=== PATIENT | male | born 1975 | race Caucasian/White ===

== ENCOUNTER 2017-01-08 19:31 | Emergency (ER) | payer SELFPAY ==
[~2017-01-08] VITALS: Ht 172.7 cm; Wt 93.3 kg
[2017-01-08] MEDS: MORPHINE SULFATE 4 MG/ML, 1ML IVPush PRN ×2 (20:53→22:15)
[2017-01-08] MEDS ORDERED: MORPHINE SULFATE 4 MG/ML, 1ML ONE ×2 (20:54→22:07)
[2017-01-08] MEDS ORDERED: FAMOTIDINE 20 MG/2 ML ONE (20:54)
[2017-01-08] MEDS ORDERED: ONDANSETRON 2MG/ML, 2ML ONE (20:54)
[2017-01-08] MEDS ORDERED: FAMOTIDINE 20 MG/2 ML IVP ONE (21:00)
[2017-01-08] MEDS ORDERED: SODIUM CHLORIDE FLUSH 10ML SYR IVF ONE (21:00)
[2017-01-08] MEDS ORDERED: ONDANSETRON 2MG/ML, 2ML IVPush ONE (21:00)
[2017-01-08] MEDS ORDERED: SODIUM CHLORIDE 0.9% 1,000ML IVBOLUS ONE (21:00)
[2017-01-08] MEDS ORDERED: OMNIPAQUE 350 MG/ML, 100ML BOTTLE ONE (21:00)
[2017-01-08 21:34] LABS: BLOOD UREA NITROGEN 16 mg/dL (7-18)
[2017-01-08 21:38] LABS: ASPARTATE AMINO TRANSFERASE 20 U/L (15-37)
[2017-01-08 22:23] VITALS: BP 164/105
[2017-01-08 22:48] LABS: DAU SCREEN DISCLAIMER
[2017-01-08] MEDS ORDERED: MAALOX/HYOSCYAMINE/LIDOCAINE 45 ML BOTTLE PO ONE (23:30)
[2017-01-08] MEDS ORDERED: MAALOX/HYOSCYAMINE/LIDOCAINE 45 ML BOTTLE ONE (23:34)
== END 2017-01-08 23:52 | disposition home or self-care (01) ==
LOC: ED 20:38
DX: K29.20 Alcoholic gastritis without bleeding (principal); K21.0 Gastro-esophageal reflux disease with esophagitis
CPT/HCPCS: 36415; 74177; 80053; 80307; 83690; 85025; 86677; 93005; 96361; 96374; 96375; 96376; 99285; J2405; J7030; Q9967; S0028

== ENCOUNTER 2017-03-02 17:34 | Emergency (ER) | payer SELFPAY ==
[~2017-03-02] VITALS: Ht 167.6 cm; Wt 113.0 kg
[2017-03-02] MEDS ORDERED: MAALOX/HYOSCYAMINE/LIDOCAINE 45 ML BOTTLE PO ONE (18:00)
[2017-03-02] MEDS ORDERED: LORazepam 1MG TABLET PO ONE (18:00)
[2017-03-02] MEDS ORDERED: MAALOX/HYOSCYAMINE/LIDOCAINE 45 ML BOTTLE ONE (18:14)
[2017-03-02] MEDS ORDERED: LORazepam 1MG TABLET ONE (18:14)
[2017-03-02 18:30] LABS: ASPARTATE AMINO TRANSFERASE 27 U/L (15-37); BLOOD UREA NITROGEN 17 mg/dL (7-18)
[2017-03-02 18:33] LABS: ACETAMINOPHEN < 2 mcg/mL (10-30)
[2017-03-02] MEDS ORDERED: ZIPRASIDONE 20 MG INJ IM ONE ×2 (19:29→19:30)
[2017-03-02 23:59] LABS: DAU SCREEN DISCLAIMER
[2017-03-03] MEDS ORDERED: CHLORDIAZEPOXIDE 25 MG CAPSULE PO ONE ×2 (01:00→02:30)
[2017-03-03] MEDS: CHLORDIAZEPOXIDE 25 MG CAPSULE PO PRN ×2 (01:41→02:22)
[2017-03-03] MEDS ORDERED: ONDANSETRON ODT 4 MG ONE (02:08)
[2017-03-03] MEDS ORDERED: FAMOTIDINE 20 MG TABLET ONE (02:08)
[2017-03-03 02:12] VITALS: BP 156/107
[2017-03-03] MEDS ORDERED: ONDANSETRON ODT 8 MG PO ONE (02:30)
[2017-03-03] MEDS ORDERED: ONDANSETRON ODT 4 MG PO ONE (02:30)
[2017-03-03] MEDS ORDERED: FAMOTIDINE 20 MG TABLET PO ONE (02:30)
== END 2017-03-03 02:58 | disposition home or self-care (01) ==
LOC: ED 21:51
DX: F10.220 Alcohol dependence with intoxication, uncomplicated (principal); R45.851 Suicidal ideations; K29.20 Alcoholic gastritis without bleeding; G31.2 Degeneration of nervous system due to alcohol
CPT/HCPCS: 36415; 80053; 80307; 80329; 85025; 93005; 96372; 99285; J3486; Q0162; G0480

== ENCOUNTER 2017-06-02 15:13 | Inpatient (IN) | payer SELFPAY ==
[~2017-06-02] VITALS: Ht 172.7 cm; Wt 93.6 kg
[2017-06-02] MEDS ORDERED: PLEASE ENTER HEIGHT AND WEIGHT MC SCH (15:30)
[2017-06-02] MEDS ORDERED: ONDANSETRON 2MG/ML, 2ML IVPush ONE ×2 (15:30→20:00)
[2017-06-02] MEDS ORDERED: SODIUM CHLORIDE FLUSH 10ML SYR IVF ONE (15:30)
[2017-06-02] MEDS ORDERED: LORazepam 2 MG/ML, 1ML IVPush ONE (15:30)
[2017-06-02] MEDS ORDERED: SODIUM CHLORIDE 0.9% 1,000ML IVBOLUS ONE (15:30)
[2017-06-02] MEDS ORDERED: FAMOTIDINE 20 MG/2 ML IVP ONE (15:30)
[2017-06-02 15:54] LABS: HEMATOCRIT 50.6 % (39.2-51.8); HEMOGLOBIN 17.3 g/dL (13.7-18.0); WHITE BLOOD COUNT 12.7 x10^3/uL (3.4-10)
[2017-06-02 16:08] LABS: ASPARTATE AMINO TRANSFERASE 23 U/L (15-37); BLOOD UREA NITROGEN 11 mg/dL (7-18)
[2017-06-02] MEDS ORDERED: PANTOPRAZOLE 80 MG in SODIUM CHLORIDE 0.9% 50 ML IVPB ONE (17:56)
[2017-06-02] MEDS ORDERED: ONDANSETRON 2MG/ML, 2ML ONE ×3 (17:57→19:52)
[2017-06-02] MEDS ORDERED: LORazepam 2 MG/ML, 1ML ONE (17:58)
[2017-06-02] MEDS ORDERED: FAMOTIDINE 20 MG/2 ML ONE (17:58)
[2017-06-02] MEDS ORDERED: PANTOPRAZOLE 40 MG IV IVP ONE (18:00)
[2017-06-02] MEDS ORDERED: PANTOPRAZOLE 40 MG IV ONE (18:14)
[2017-06-02] MEDS ORDERED: PANTOPRAZOLE 80 MG in SODIUM CHLORIDE 0.9% 100 ML IV SCH (18:35)
[2017-06-02] MEDS ORDERED: POTASSIUM CHLORIDE 40 MEQ in SODIUM CHLORIDE 0.9% 1,000 ML IV ONE (18:42)
[2017-06-02] MEDS ORDERED: NS + 40MEQ KCL 1,000 ML IV ONE (19:13)
[2017-06-02] MEDS ORDERED: SODIUM CHLORIDE FLUSH 10ML SYR IVF PRN (20:00)
[2017-06-02] MEDS ORDERED: ONDANSETRON 2MG/ML, 2ML IV PRN (20:00)
[2017-06-02] MEDS ORDERED: hydrALAzine 20 MG/ML, 1ML IVPush PRN (20:00)
[2017-06-02] MEDS ORDERED: ONDANSETRON 2MG/ML, 2ML IVPush PRN (20:00)
[2017-06-02] MEDS ORDERED: THIAMINE 100 MG in SODIUM CHLORIDE 0.9% 50 ML IVPB ONE (20:00)
[2017-06-02] MEDS: PANTOPRAZOLE 80 MG in SODIUM CHLORIDE 0.9% 50 ML IVPB SCH ×15 (20:00→23:30)
[2017-06-02] MEDS ORDERED: LORazepam 2 MG/ML, 1ML IM PRN (20:30)
[2017-06-02 22:18] VITALS: BP 96/67
[2017-06-02 23:00] VITALS: BP 96/67
[2017-06-02] MEDS ORDERED: LORazepam 2 MG/ML, 1ML IV PRN (23:00)
[2017-06-02] MEDS ORDERED: PROMETHAZINE 25 MG/ML, 1ML IM PRN (23:00)
[2017-06-03] MEDS: SODIUM CHLORIDE 0.9% 1,000 ML IV SCH ×3 (00:01→22:11)
[2017-06-03 02:55] VITALS: BP 105/74
[2017-06-03] MEDS: HYDROmorphone 2 MG/ML, 1ML IVPush PRN ×4 (04:39→22:07)
[2017-06-03 05:46] LABS: HEMOGLOBIN 9.6 g/dL (13.7-18.0)
[2017-06-03 05:51] LABS: ASPARTATE AMINO TRANSFERASE 27 U/L (15-37); BLOOD UREA NITROGEN 33 mg/dL (7-18)
[2017-06-03] MEDS ORDERED: PANTOPRAZOLE 40 MG IV IVPush SCH (07:30)
[2017-06-03 07:59] VITALS: BP 125/80
[2017-06-03] MEDS ORDERED: FENTANYL PF 100 MCG/2ML ONE (08:55)
[2017-06-03] MEDS ORDERED: MIDAZOLAM 1 MG/ML, 2ML ONE (08:55)
[2017-06-03 09:06] LABS: PATH.CAST-FLAG NOT PRESENT; SPERM-FLAG NOT PRESENT; SRC-FLAG NOT PRESENT; XTAL-FLAG NOT PRESENT; YLC-FLAG NOT PRESENT
[2017-06-03] MEDS ORDERED: PROPOFOL 10 MG/ML, 20ML ONE (09:06)
[2017-06-03] MEDS ORDERED: DEXAMETHASONE 4 MG/ML, 1ML ONE (09:06)
[2017-06-03] MEDS ORDERED: ROCURONIUM 10 MG/ML ONE (09:06)
[2017-06-03] MEDS ORDERED: ONDANSETRON 2MG/ML, 2ML ONE (09:06)
[2017-06-03] MEDS ORDERED: SUCCINYLCHOLINE 20 MG/ML, 10ML ONE (09:06)
[2017-06-03] MEDS ORDERED: HYDROcodone/APAP 7.5-325MG/15ML UDC PO PRN (10:00)
[2017-06-03] MEDS ORDERED: OXYcodone 5 MG/5 ML ORAL.SOL UDC PO PRN (10:00)
[2017-06-03] MEDS ORDERED: ONDANSETRON 2MG/ML, 2ML IVPush PRN (10:00)
[2017-06-03] MEDS ORDERED: FENTANYL PF 100 MCG/2ML IV PRN (10:00)
[2017-06-03] MEDS ORDERED: HYDROmorphone 1 MG/ML, 1ML IV PRN (10:00)
[2017-06-03] MEDS: PANTOPRAZOLE 80 MG in SODIUM CHLORIDE 0.9% 100 ML IV SCH ×2 (13:18→22:31)
[2017-06-03] MEDS: IRON SUCROSE COMPLEX 100MG/5ML IV SCH (13:19)
[2017-06-03] MEDS: NICOTINE 21 MG/24 HR PATCH.TD24 TD SCH (13:19)
[2017-06-03 14:30] VITALS: BP 113/72
[2017-06-03 20:35] VITALS: BP 123/71
[2017-06-04 01:34] VITALS: BP 134/75
[2017-06-04] MEDS: HYDROmorphone 2 MG/ML, 1ML IVPush PRN ×7 (01:39→21:12)
[2017-06-04 05:42] LABS: HEMOGLOBIN 7.6 g/dL (13.7-18.0)
[2017-06-04 05:44] LABS: HEMATOCRIT 22.4 % (39.2-51.8)
[2017-06-04 07:24] VITALS: BP 115/71
[2017-06-04] MEDS: IRON SUCROSE COMPLEX 100MG/5ML IV SCH (09:12)
[2017-06-04] MEDS: NICOTINE 21 MG/24 HR PATCH.TD24 TD SCH (09:19)
[2017-06-04] MEDS: PANTOPRAZOLE 80 MG in SODIUM CHLORIDE 0.9% 100 ML IV SCH ×2 (09:34→18:00)
[2017-06-04 11:38] LABS: HEMOGLOBIN 7.6 g/dL (13.7-18.0); WHITE BLOOD COUNT 10.5 x10^3/uL (3.4-10)
[2017-06-04 11:42] LABS: HEMATOCRIT 22.3 % (39.2-51.8)
[2017-06-04 13:25] VITALS: BP 124/82
[2017-06-04] MEDS: SODIUM CHLORIDE 0.9% 1,000 ML IV SCH (13:30)
[2017-06-04 20:00] VITALS: BP 138/82
[2017-06-05] MEDS: HYDROmorphone 2 MG/ML, 1ML IVPush PRN ×5 (00:36→19:53)
[2017-06-05 01:25] VITALS: BP 147/89
[2017-06-05] MEDS: SODIUM CHLORIDE 0.9% 1,000 ML IV SCH (03:20)
[2017-06-05 04:58] LABS: HEMATOCRIT 23.7 % (39.2-51.8); HEMOGLOBIN 8.2 g/dL (13.7-18.0)
[2017-06-05] MEDS: PANTOPRAZOLE 80 MG in SODIUM CHLORIDE 0.9% 100 ML IV SCH (06:00)
[2017-06-05 08:17] VITALS: BP 117/73
[2017-06-05] MEDS: IRON SUCROSE COMPLEX 100MG/5ML IV SCH (09:00)
[2017-06-05] MEDS: SUCRALFATE 1 GM/10 ML UDC PO SCH ×3 (11:00→21:32)
[2017-06-05] MEDS: NICOTINE 21 MG/24 HR PATCH.TD24 TD SCH (11:00)
[2017-06-05 13:33] VITALS: BP 104/65
[2017-06-05] MEDS ORDERED: PANT40TA3 PO (18:57)
[2017-06-05] MEDS ORDERED: SUCR1ORA5 PO (18:57)
[2017-06-05] MEDS ORDERED: IRON1TAB37 PO (18:57)
[2017-06-05] MEDS ORDERED: MAGNESIUM SULFATE PMX 4GM/100M 100 ML IV ONE (19:00)
[2017-06-05] MEDS: PANTOPRAZOLE 40 MG IV IVPush SCH (19:53)
[2017-06-05] MEDS: POTASSIUM CHLORIDE 10% 40 MEQ/30 ML UDC PO SCH (19:54)
[2017-06-05 20:00] VITALS: BP 121/64
[2017-06-05] MEDS ORDERED: DIPHENHYDRAMINE 50 MG CAPSULE PO SCH (21:00)
[2017-06-06] MEDS: POTASSIUM CHLORIDE 10% 40 MEQ/30 ML UDC PO SCH (00:15)
[2017-06-06] MEDS: HYDROmorphone 2 MG/ML, 1ML IVPush PRN ×2 (00:16→09:05)
[2017-06-06 03:08] VITALS: BP 117/74
[2017-06-06] MEDS: SUCRALFATE 1 GM/10 ML UDC PO SCH ×2 (06:44→11:53)
[2017-06-06 07:00] VITALS: BP 124/82
[2017-06-06] MEDS ORDERED: POTASSIUM CHLORIDE 10% 40 MEQ/30 ML UDC PO ONE (08:00)
[2017-06-06] MEDS: PANTOPRAZOLE 40 MG IV IVPush SCH (08:36)
[2017-06-06] MEDS: IRON SUCROSE COMPLEX 100MG/5ML IV SCH (08:37)
[2017-06-06] MEDS: NICOTINE 21 MG/24 HR PATCH.TD24 TD SCH (11:54)
[2017-06-06] MEDS ORDERED: POTA20TA14 PO (12:54)
== END 2017-06-06 14:50 | disposition home or self-care (01) | DRG 896 ==
LOC: ED 19:49 → EDIP 19:50 → ED 19:53 → 3NE 22:02 → DCLOUNGE 06-06 13:45
PROVIDERS: ADMIT Internal Medicine; ATTEND Internal Medicine
PROC: 0DJ08ZZ Inspection of Upper Intestinal Tract, Via Natural or Artificial Opening Endoscopic (ICD-10-PCS; principal; 2017-06-03 08:30)
DX: F10.239 Alcohol dependence with withdrawal, unspecified (principal); K22.11 Ulcer of esophagus with bleeding; K29.21 Alcoholic gastritis with bleeding; D62 Acute posthemorrhagic anemia; F10.288 Alcohol dependence with other alcohol-induced disorder; K26.9 Duodenal ulcer, unspecified as acute or chronic, without hemorrhage or perforation; K22.2 Esophageal obstruction; I10 Essential (primary) hypertension; E87.6 Hypokalemia; F17.200 Nicotine dependence, unspecified, uncomplicated; F41.1 Generalized anxiety disorder; G47.00 Insomnia, unspecified; K21.9 Gastro-esophageal reflux disease without esophagitis
CPT/HCPCS: 36415; 74022; 76700; 80053; 81001; 83690; 83735; 84132; 85014; 85018; 85025; 85610; 85730; 86850; 86900; 87086; 93005; 96361; 96374; 96375; J1100; J1170; J1756; J2250; J2405; J2550; J2704; J3010; J3411; J3480; C9113; J0330; J2060; J3475; J7030; S0028

== ENCOUNTER 2017-08-30 22:09 | Emergency (ER) | payer OTHER ==
[~2017-08-30] VITALS: Ht 172.7 cm; Wt 92.0 kg
[~2017-08-30 22:09] MED LIST: IRON1TAB37 PO; PANT40TA3 PO; POTA20TA14 PO; SUCR1ORA5 PO
[2017-08-30] MEDS ORDERED: MAALOX/HYOSCYAMINE/LIDOCAINE 45 ML BTL ONE (23:20)
[2017-08-30 23:22] VITALS: BP 140/90
[2017-08-30] MEDS ORDERED: MAALOX/HYOSCYAMINE/LIDOCAINE 45 ML BTL PO ONE (23:30)
[2017-08-30 23:32] LABS: BASOPHILS # (AUTO) 0.07 x10^3/uL (0-0.1); BASOPHILS % (AUTO) 1 % (0-1); EOSINOPHILS # (AUTO) 0.17 x10^3/uL (0-0.4); EOSINOPHILS % (AUTO) 1 % (1-7); LYMPHOCYTES # (AUTO) 3.93 x10^3/uL (1-3.4); LYMPHOCYTES % (AUTO) 33 % (22-44); MD NO; MEAN CORPUSCULAR HEMOGLOBIN 29.9 pg (27.5-34.5); MEAN CORPUSCULAR HGB CONC 32.8 g/dL (33.2-36.2); MEAN CORPUSCULAR VOLUME 90.9 fL (81-97); MEAN PLATELET VOLUME 7.2 fL (7.4-10.4); MONOCYTES # (AUTO) 1.06 x10^3/uL (0.2-0.8); MONOCYTES % (AUTO) 9 % (2-9); NEUTROPHILS % (AUTO) 56 % (42-75); PLATELET COUNT 466 x10^3/uL (130-400); RED BLOOD COUNT 5.23 x10^6/uL (4.38-5.82)
[2017-08-30 23:42] LABS: ANION GAP 12 mmol/L (5-15); CALCIUM 8.7 mg/dL (8.5-10.1); CHLORIDE 92 mmol/L (98-107); CREATININE 1.22 mg/dL (0.7-1.3)
[2017-08-30 23:46] LABS: INTERNATIONAL NORMALIZED RATIO 0.98 (0.93-1.1); PROTHROMBIN TIME 10.1 Seconds (9.6-11.5)
[2017-08-31] MEDS ORDERED: THIAMINE 100MG TABLET PO ONE
[2017-08-31] MEDS ORDERED: THIAMINE 100MG TABLET ONE (00:05)
[2017-08-31] MEDS ORDERED: POTASSIUM CHLORIDE 20 MEQ TAB.ER.PRT ONE (00:06)
[2017-08-31] MEDS: POTASSIUM CHLORIDE 20 MEQ TAB.ER.PRT PO ONE ×2 (00:08→00:19)
== END 2017-08-31 00:41 | disposition left against medical advice (07) ==
LOC: ED 23:18
DX: K29.00 Acute gastritis without bleeding (principal); F10.10 Alcohol abuse, uncomplicated; K21.9 Gastro-esophageal reflux disease without esophagitis; F17.200 Nicotine dependence, unspecified, uncomplicated
CPT/HCPCS: 36415; 80048; 80307; 82040; 85025; 85610; 85730; 99284; G0479

== ENCOUNTER 2017-09-30 11:37 | Emergency (ER) | payer SELFPAY ==
[~2017-09-30] VITALS: Ht 172.7 cm; Wt 91.1 kg
[2017-09-30] MEDS ORDERED: SODIUM CHLORIDE 0.9% 1,000ML IVBOLUS ONE (12:30)
[2017-09-30] MEDS ORDERED: FAMOTIDINE 20 MG/2 ML IVP ONE (12:30)
[2017-09-30] MEDS ORDERED: MAALOX/HYOSCYAMINE/LIDOCAINE 45 ML BTL PO ONE (12:30)
[2017-09-30 12:33] LABS: BASOPHILS # (AUTO) 0.07 x10^3/uL (0-0.1); BASOPHILS % (AUTO) 1 % (0-1); EOSINOPHILS # (AUTO) 0.05 x10^3/uL (0-0.4); EOSINOPHILS % (AUTO) 0 % (1-7); LYMPHOCYTES # (AUTO) 3.24 x10^3/uL (1-3.4); LYMPHOCYTES % (AUTO) 26 % (22-44); MD NO; MEAN CORPUSCULAR HEMOGLOBIN 29.3 pg (27.5-34.5); MEAN CORPUSCULAR HGB CONC 32.9 g/dL (33.2-36.2); MEAN CORPUSCULAR VOLUME 88.8 fL (81-97); MEAN PLATELET VOLUME 7.6 fL (7.4-10.4); MONOCYTES # (AUTO) 0.47 x10^3/uL (0.2-0.8); MONOCYTES % (AUTO) 4 % (2-9); NEUTROPHILS # (AUTO) 8.64 x10^3/uL (1.8-6.8); NEUTROPHILS % (AUTO) 69 % (42-75); PLATELET COUNT 488 x10^3/uL (130-400); RED BLOOD COUNT 5.13 x10^6/uL (4.38-5.82)
[2017-09-30] MEDS ORDERED: FAMOTIDINE 20 MG/2 ML ONE (12:34)
[2017-09-30] MEDS ORDERED: MAALOX/HYOSCYAMINE/LIDOCAINE 45 ML BTL ONE (12:34)
[2017-09-30 12:36] LABS: INTERNATIONAL NORMALIZED RATIO 0.95 (0.93-1.1); PROTHROMBIN TIME 9.9 Seconds (9.6-11.5)
[2017-09-30 12:40] LABS: ALANINE AMINOTRANSFERASE 32 U/L (12-78); ALBUMIN 3.9 g/dL (3.4-5.0); ANION GAP 15 mmol/L (5-15); CALCIUM 8.1 mg/dL (8.5-10.1); CHLORIDE 98 mmol/L (98-107); CREATININE 1.06 mg/dL (0.7-1.3)
[2017-09-30 12:42] LABS: ALKALINE PHOSPHATASE 84 U/L (45-117); BILIRUBIN,TOTAL 0.2 mg/dL (0.2-1.0); TOTAL PROTEIN 7.7 g/dL (6.4-8.2)
[2017-09-30] MEDS ORDERED: POTASSIUM CHLORIDE 20 MEQ TAB.ER.PRT PO ONE (13:00)
[2017-09-30] MEDS ORDERED: POTASSIUM CHLORIDE 20 MEQ TAB.ER.PRT ONE (14:04)
[2017-09-30] MEDS ORDERED: MORPHINE SULFATE 4 MG/ML, 1ML ONE (14:24)
[2017-09-30] MEDS ORDERED: morphine SULFATE 10 MG/ML, 1ML IVPush ONE (14:30)
[2017-09-30 15:03] VITALS: BP 170/109
== END 2017-09-30 15:09 | disposition home or self-care (01) ==
LOC: ED 12:44
DX: K29.20 Alcoholic gastritis without bleeding (principal); F10.129 Alcohol abuse with intoxication, unspecified; K21.9 Gastro-esophageal reflux disease without esophagitis; E86.0 Dehydration; Z87.11 Personal history of peptic ulcer disease
CPT/HCPCS: 36415; 80053; 83690; 85025; 85610; 96361; 96374; 96375; 99285; J2270; J7030; S0028

== ENCOUNTER 2018-04-23 18:54 | Emergency (ER) | payer SELFPAY ==
[~2018-04-23] VITALS: Ht 167.6 cm; Wt 89.2 kg
[2018-04-23 19:45] LABS: BASOPHILS # (AUTO) 0.12 x10^3/uL (0-0.1); BASOPHILS % (AUTO) 1 % (0-1); EOSINOPHILS # (AUTO) 0.08 x10^3/uL (0-0.4); EOSINOPHILS % (AUTO) 1 % (1-7); LYMPHOCYTES # (AUTO) 3.28 x10^3/uL (1-3.4); LYMPHOCYTES % (AUTO) 26 % (22-44); MD NO; MEAN CORPUSCULAR HEMOGLOBIN 30.1 pg (27.5-34.5); MEAN CORPUSCULAR HGB CONC 33.4 g/dL (33.2-36.2); MEAN CORPUSCULAR VOLUME 90.2 fL (81-97); MEAN PLATELET VOLUME 7.3 fL (7.4-10.4); MONOCYTES # (AUTO) 0.65 x10^3/uL (0.2-0.8); MONOCYTES % (AUTO) 5 % (2-9); NEUTROPHILS # (AUTO) 8.55 x10^3/uL (1.8-6.8); NEUTROPHILS % (AUTO) 67 % (42-75); PLATELET COUNT 570 x10^3/uL (130-400); RED CELL DISTRIBUTION WIDTH 18.9 % (9.4-14.8)
[2018-04-23 19:53] LABS: ALANINE AMINOTRANSFERASE 40 U/L (12-78); ALBUMIN 3.7 g/dL (3.4-5.0); ANION GAP 13 mmol/L (5-15); CALCIUM 8.1 mg/dL (8.5-10.1); CHLORIDE 103 mmol/L (98-107); SALICYLATE LEVEL 4.1 mg/dL (2.8-20.0)
[2018-04-23 20:02] LABS: ACETAMINOPHEN < 2 mcg/mL (10-30); ALKALINE PHOSPHATASE 103 U/L (45-117); BILIRUBIN,TOTAL 0.3 mg/dL (0.2-1.0); TOTAL PROTEIN 7.7 g/dL (6.4-8.2)
[2018-04-23] MEDS ORDERED: POTASSIUM CHLORIDE 20 MEQ TAB.ER.PRT ONE (20:11)
[2018-04-23 20:23] LABS: AMPHETAMINE SCREEN, URINE Negative (Negative); BARBITURATE SCREEN, URINE Negative (Negative); BENZODIAZEPINE SCREEN, URINE Negative (Negative); CANNABINOID SCREEN, URINE Negative (Negative); COCAINE SCREEN, URINE Negative (Negative); METHADONE SCREEN, URINE Negative (Negative); OPIATE SCREEN, URINE Negative (Negative)
[2018-04-23] MEDS ORDERED: POTASSIUM CHLORIDE 20 MEQ TAB.ER.PRT PO ONE (20:30)
[2018-04-23 21:00] VITALS: BP 121/74
== END 2018-04-23 21:57 | disposition home or self-care (01) ==
LOC: ED 21:10
DX: F10.129 Alcohol abuse with intoxication, unspecified (principal); E87.6 Hypokalemia; K21.9 Gastro-esophageal reflux disease without esophagitis; F17.200 Nicotine dependence, unspecified, uncomplicated; Z79.899 Other long term (current) drug therapy
CPT/HCPCS: 36415; 80053; 80307; 80329; 85025; 99284; G0480

== ENCOUNTER 2018-04-26 19:43 | Inpatient (IN) | payer OTHER ==
[~2018-04-26] VITALS: Ht 172.7 cm; Wt 90.4 kg
[2018-04-26] MEDS ORDERED: ONDANSETRON ODT 4 MG ONE (19:47)
[2018-04-26] MEDS ORDERED: ONDANSETRON ODT 4 MG PO ONE (20:00)
[2018-04-26] MEDS ORDERED: PROMETHAZINE 25 MG/ML, 1ML ONE (20:06)
[2018-04-26] MEDS: LORazepam 1MG TABLET PO ONE ×2 (20:30→23:20)
[2018-04-26] MEDS ORDERED: PROMETHAZINE 25 MG/ML, 1ML IM ONE (20:30)
[2018-04-26 20:40] LABS: MEAN CORPUSCULAR HEMOGLOBIN 30.1 pg (27.5-34.5); MEAN CORPUSCULAR HGB CONC 33.1 g/dL (33.2-36.2); MEAN CORPUSCULAR VOLUME 91.2 fL (81-97); MEAN PLATELET VOLUME 7.8 fL (7.4-10.4); PLATELET COUNT 372 x10^3/uL (130-400); RED BLOOD COUNT 5.66 x10^6/uL (4.38-5.82); RED CELL DISTRIBUTION WIDTH 18.1 % (9.4-14.8)
[2018-04-26 20:45] LABS: INTERNATIONAL NORMALIZED RATIO 1.04 (0.93-1.1); PROTHROMBIN TIME 10.7 Seconds (9.6-11.5)
[2018-04-26 20:49] LABS: ALANINE AMINOTRANSFERASE 43 U/L (12-78); ALBUMIN 4.1 g/dL (3.4-5.0); ANION GAP 10 mmol/L (5-15); CHLORIDE 98 mmol/L (98-107); CREATININE 1.43 mg/dL (0.7-1.3)
[2018-04-26 20:52] LABS: ALKALINE PHOSPHATASE 165 U/L (45-117); BILIRUBIN,TOTAL 1.4 mg/dL (0.2-1.0); TOTAL PROTEIN 8.4 g/dL (6.4-8.2)
[2018-04-26 20:59] LABS: MD YES
[2018-04-26 21:01] LABS: BAND#(MANUAL) 0.19 x10^3/uL; BANDS%(MANUAL) 1 % (0-7); LYMPH#(MANUAL) 1.48 x10^3/uL (1-3.4); LYMPHS% (MANUAL) 8 % (22-44); MONOS#(MANUAL) 0.19 x10^3/uL (0.3-2.7); MONOS% (MANUAL) 1 % (2-9); SEG#(MANUAL) 16.65 x10^3/uL (1.8-6.8); SEGS% (MANUAL) 90 % (42-75)
[2018-04-26 21:02] LABS: <PLATELET ESTIMATE> ADEQUATE; <PLT MORPHOLOGY> NORMAL PLT MORPH; ANISOCYTOSIS 1+
[2018-04-26] MEDS ORDERED: SODIUM CHLORIDE 0.9% 1,000 ML IV ONE (21:18)
[2018-04-26] MEDS ORDERED: SODIUM CHLORIDE FLUSH 10ML SYR IVF ONE (21:30)
[2018-04-26] MEDS ORDERED: hydrALAzine 20 MG/ML, 1ML IV ONE (21:30)
[2018-04-26] MEDS ORDERED: SODIUM CHLORIDE 0.9% 1,000ML IVBOLUS ONE (21:30)
[2018-04-26] MEDS ORDERED: LORazepam 2 MG/ML, 1ML IVPush ONE (21:30)
[2018-04-26] MEDS ORDERED: hydrALAzine 20 MG/ML, 1ML ONE (21:38)
[2018-04-26] MEDS ORDERED: LORazepam 2 MG/ML, 1ML ONE (21:39)
[2018-04-26] MEDS ORDERED: PROMETHAZINE 25 MG/ML, 1ML IM PRN (22:00)
[2018-04-26] MEDS ORDERED: BISACODYL 10 MG SUPP PR PRN (22:00)
[2018-04-26] MEDS: NS + 20MEQ KCL 1,000 ML IV SCH (22:00)
[2018-04-26 22:05] LABS: TROPONIN I < 0.015 ng/mL (0.000-0.045)
[2018-04-26] MEDS ORDERED: POTASSIUM CHLORIDE 20 MEQ, MAGNESIUM SULFATE 1 GM, THIAMINE 200 MG, FOLIC ACID 1 MG, MV... IV SCH (22:30)
[2018-04-26] MEDS: NICOTINE 21 MG/24 HR PATCH.TD24 TD SCH (23:20)
[2018-04-26] MEDS: PANTOPRAZOLE 40 MG IV IVPush SCH (23:31)
[2018-04-27 01:40] VITALS: BP 135/83
[2018-04-27] MEDS ORDERED: LORazepam 2 MG/ML, 1ML IV PRN ×4 (02:00)
[2018-04-27 02:26] VITALS: BP 132/82
[2018-04-27] MEDS: LORazepam 2 MG/ML, 1ML IV PRN (03:00)
[2018-04-27 05:37] LABS: CHLORIDE 106 mmol/L (98-107)
[2018-04-27 05:46] LABS: ALANINE AMINOTRANSFERASE 31 U/L (12-78); ALBUMIN 3.1 g/dL (3.4-5.0); ALKALINE PHOSPHATASE 119 U/L (45-117); ANION GAP 6 mmol/L (5-15); BILIRUBIN,TOTAL 0.8 mg/dL (0.2-1.0); CALCIUM 7.7 mg/dL (8.5-10.1); CREATININE 1.03 mg/dL (0.7-1.3); TOTAL PROTEIN 6.7 g/dL (6.4-8.2)
[2018-04-27] MEDS: NS + 20MEQ KCL 1,000 ML IV SCH ×3 (05:53→21:55)
[2018-04-27 06:05] LABS: BASOPHILS # (AUTO) 0.05 x10^3/uL (0-0.1); BASOPHILS % (AUTO) 0 % (0-1); EOSINOPHILS # (AUTO) 0.03 x10^3/uL (0-0.4); EOSINOPHILS % (AUTO) 0 % (1-7); LYMPHOCYTES # (AUTO) 2.11 x10^3/uL (1-3.4); LYMPHOCYTES % (AUTO) 13 % (22-44); MD NO; MEAN CORPUSCULAR HEMOGLOBIN 30.3 pg (27.5-34.5); MEAN CORPUSCULAR HGB CONC 33.6 g/dL (33.2-36.2); MEAN CORPUSCULAR VOLUME 90.4 fL (81-97); MEAN PLATELET VOLUME 8.1 fL (7.4-10.4); MONOCYTES # (AUTO) 0.87 x10^3/uL (0.2-0.8); MONOCYTES % (AUTO) 5 % (2-9); NEUTROPHILS # (AUTO) 12.87 x10^3/uL (1.8-6.8); NEUTROPHILS % (AUTO) 81 % (42-75); PLATELET COUNT 325 x10^3/uL (130-400); RED BLOOD COUNT 4.53 x10^6/uL (4.38-5.82); RED CELL DISTRIBUTION WIDTH 18.6 % (9.4-14.8)
[2018-04-27 08:53] VITALS: BP 143/85
[2018-04-27] MEDS ORDERED: POTASSIUM CHLORIDE 20 MEQ TAB.ER.PRT PO SCH (09:00)
[2018-04-27] MEDS: SUCRALFATE 1 GM TABLET PO SCH ×5 (10:13→21:50)
[2018-04-27] MEDS: ONDANSETRON 2MG/ML, 2ML IVPush PRN ×2 (10:17→17:22)
[2018-04-27] MEDS: PANTOPRAZOLE 40 MG IV IVPush SCH (10:17)
[2018-04-27] MEDS ORDERED: FAMOTIDINE 20 MG TABLET PO SCH (11:00)
[2018-04-27] MEDS: MAALOX/HYOSCYAMINE/LIDOCAINE 45 ML BTL PO PRN ×2 (11:39→17:13)
[2018-04-27] MEDS: THIAMINE 100MG TABLET PO SCH (12:08)
[2018-04-27] MEDS: FOLIC ACID 1 MG TABLET PO SCH (12:08)
[2018-04-27] MEDS: MULTIVITAMIN 1 TABLET PO SCH (12:08)
[2018-04-27 14:31] VITALS: BP 136/89
[2018-04-27] MEDS: POTASSIUM CHLORIDE 20 MEQ TAB.ER.PRT PO SCH ×2 (17:14→17:37)
[2018-04-27 19:30] VITALS: BP 153/98
[2018-04-27] MEDS: NICOTINE 21 MG/24 HR PATCH.TD24 TD SCH (21:55)
[2018-04-27] MEDS: FAMOTIDINE 20 MG/2 ML IVPush SCH (21:55)
[2018-04-27] MEDS ORDERED: MORPHINE SULFATE 4 MG/ML, 1ML IVPush ONE (22:30)
[2018-04-28] MEDS: NS + 20MEQ KCL 1,000 ML IV SCH ×3 (00:17→20:52)
[2018-04-28 00:22] VITALS: BP 154/79
[2018-04-28 05:27] LABS: MEAN CORPUSCULAR HEMOGLOBIN 30.2 pg (27.5-34.5); MEAN CORPUSCULAR VOLUME 91.3 fL (81-97); PLATELET COUNT 263 x10^3/uL (130-400); RED BLOOD COUNT 4.27 x10^6/uL (4.38-5.82); RED CELL DISTRIBUTION WIDTH 18.1 % (9.4-14.8)
[2018-04-28 05:32] LABS: ANION GAP 6 mmol/L (5-15); CALCIUM 7.8 mg/dL (8.5-10.1); CHLORIDE 113 mmol/L (98-107)
[2018-04-28 06:17] LABS: BASOPHILS # (AUTO) 0.01 x10^3/uL (0-0.1); BASOPHILS % (AUTO) 0 % (0-1); EOSINOPHILS # (AUTO) 0.16 x10^3/uL (0-0.4); EOSINOPHILS % (AUTO) 1 % (1-7); LYMPHOCYTES # (AUTO) 1.81 x10^3/uL (1-3.4); LYMPHOCYTES % (AUTO) 16 % (22-44); MD SCAN; MONOCYTES # (AUTO) 0.61 x10^3/uL (0.2-0.8); MONOCYTES % (AUTO) 5 % (2-9); NEUTROPHILS # (AUTO) 8.77 x10^3/uL (1.8-6.8); NEUTROPHILS % (AUTO) 77 % (42-75)
[2018-04-28] MEDS: SUCRALFATE 1 GM TABLET PO SCH ×4 (07:00→20:51)
[2018-04-28 07:41] VITALS: BP 149/93
[2018-04-28] MEDS: POTASSIUM CHLORIDE 20 MEQ TAB.ER.PRT PO SCH ×2 (08:00→17:00)
[2018-04-28] MEDS: FOLIC ACID 1 MG TABLET PO SCH (09:00)
[2018-04-28] MEDS: FAMOTIDINE 20 MG/2 ML IVPush SCH ×2 (09:00→20:51)
[2018-04-28] MEDS: THIAMINE 100MG TABLET PO SCH (09:00)
[2018-04-28] MEDS: MULTIVITAMIN 1 TABLET PO SCH (09:00)
[2018-04-28] MEDS ORDERED: LORazepam 2 MG/ML, 1ML IVPush ONE (11:30)
[2018-04-28 12:01] LABS: MICROSCOPIC NOT IND
[2018-04-28 12:06] LABS: CULTURE INDICATED? NO
[2018-04-28] MEDS ORDERED: GADOBUTROL 10 MMOL/10 ML PFS ONE (13:42)
[2018-04-28 13:58] VITALS: BP 157/103
[2018-04-28] MEDS: PANTOPRAZOLE 40 MG IV IVPush SCH (15:35)
[2018-04-28 18:46] VITALS: BP 150/90
[2018-04-28] MEDS: MAALOX/HYOSCYAMINE/LIDOCAINE 45 ML BTL PO PRN (20:52)
[2018-04-28] MEDS: NICOTINE 21 MG/24 HR PATCH.TD24 TD SCH (21:29)
[2018-04-28] MEDS: LORazepam 2 MG/ML, 1ML IV PRN (22:12)
[2018-04-29 01:08] VITALS: BP 155/93
[2018-04-29] MEDS: PANTOPRAZOLE 40 MG IV IVPush SCH ×2 (03:16→15:03)
[2018-04-29] MEDS: MAALOX/HYOSCYAMINE/LIDOCAINE 45 ML BTL PO PRN (04:10)
[2018-04-29] MEDS: NS + 20MEQ KCL 1,000 ML IV SCH ×2 (05:20→15:35)
[2018-04-29 05:41] LABS: ANION GAP 7 mmol/L (5-15); CALCIUM 7.9 mg/dL (8.5-10.1); CHLORIDE 107 mmol/L (98-107)
[2018-04-29 05:42] LABS: CREATININE 0.77 mg/dL (0.7-1.3)
[2018-04-29 05:50] LABS: BASOPHILS # (AUTO) 0.03 x10^3/uL (0-0.1); BASOPHILS % (AUTO) 0 % (0-1); EOSINOPHILS # (AUTO) 0.43 x10^3/uL (0-0.4); EOSINOPHILS % (AUTO) 5 % (1-7); LYMPHOCYTES # (AUTO) 2.16 x10^3/uL (1-3.4); LYMPHOCYTES % (AUTO) 23 % (22-44); MD NO; MEAN CORPUSCULAR HEMOGLOBIN 30.6 pg (27.5-34.5); MEAN CORPUSCULAR HGB CONC 33.7 g/dL (33.2-36.2); MEAN CORPUSCULAR VOLUME 90.9 fL (81-97); MEAN PLATELET VOLUME 8.1 fL (7.4-10.4); MONOCYTES # (AUTO) 0.71 x10^3/uL (0.2-0.8); MONOCYTES % (AUTO) 8 % (2-9); NEUTROPHILS # (AUTO) 6.14 x10^3/uL (1.8-6.8); NEUTROPHILS % (AUTO) 65 % (42-75); PLATELET COUNT 265 x10^3/uL (130-400); RED CELL DISTRIBUTION WIDTH 17.8 % (9.4-14.8)
[2018-04-29 09:28] VITALS: BP 153/106
[2018-04-29] MEDS: FAMOTIDINE 20 MG/2 ML IVPush SCH (09:37)
[2018-04-29] MEDS: POTASSIUM CHLORIDE 20 MEQ TAB.ER.PRT PO SCH ×2 (10:47→15:48)
[2018-04-29] MEDS: SUCRALFATE 1 GM TABLET PO SCH ×4 (10:47→20:32)
[2018-04-29] MEDS: MULTIVITAMIN 1 TABLET PO SCH (10:48)
[2018-04-29] MEDS: THIAMINE 100MG TABLET PO SCH (10:48)
[2018-04-29] MEDS: FOLIC ACID 1 MG TABLET PO SCH (10:48)
[2018-04-29 15:08] VITALS: BP 146/97
[2018-04-29 19:00] VITALS: BP 162/123
[2018-04-29] MEDS: NICOTINE 21 MG/24 HR PATCH.TD24 TD SCH (21:07)
[2018-04-30] MEDS: NS + 20MEQ KCL 1,000 ML IV SCH ×2 (00:09→09:19)
[2018-04-30] MEDS: PANTOPRAZOLE 40 MG IV IVPush SCH (02:16)
[2018-04-30 02:21] VITALS: BP 169/111
[2018-04-30 06:39] LABS: BASOPHILS # (AUTO) 0.02 x10^3/uL (0-0.1); BASOPHILS % (AUTO) 0 % (0-1); EOSINOPHILS # (AUTO) 0.35 x10^3/uL (0-0.4); EOSINOPHILS % (AUTO) 5 % (1-7); LYMPHOCYTES # (AUTO) 1.91 x10^3/uL (1-3.4); LYMPHOCYTES % (AUTO) 26 % (22-44); MD NO; MEAN CORPUSCULAR HEMOGLOBIN 30.7 pg (27.5-34.5); MEAN CORPUSCULAR HGB CONC 33.4 g/dL (33.2-36.2); MEAN CORPUSCULAR VOLUME 91.9 fL (81-97); MEAN PLATELET VOLUME 7.6 fL (7.4-10.4); MONOCYTES # (AUTO) 0.84 x10^3/uL (0.2-0.8); MONOCYTES % (AUTO) 12 % (2-9); NEUTROPHILS # (AUTO) 4.15 x10^3/uL (1.8-6.8); NEUTROPHILS % (AUTO) 57 % (42-75); PLATELET COUNT 320 x10^3/uL (130-400); RED BLOOD COUNT 4.65 x10^6/uL (4.38-5.82)
[2018-04-30 06:48] LABS: ALANINE AMINOTRANSFERASE 33 U/L (12-78); ANION GAP 8 mmol/L (5-15); CALCIUM 8.1 mg/dL (8.5-10.1); CHLORIDE 107 mmol/L (98-107); CREATININE 0.78 mg/dL (0.7-1.3)
[2018-04-30 06:50] LABS: ALKALINE PHOSPHATASE 94 U/L (45-117); BILIRUBIN,TOTAL 0.4 mg/dL (0.2-1.0); TOTAL PROTEIN 6.9 g/dL (6.4-8.2)
[2018-04-30] MEDS: SUCRALFATE 1 GM TABLET PO SCH (07:00)
[2018-04-30 07:38] VITALS: BP 159/104
[2018-04-30] MEDS: POTASSIUM CHLORIDE 20 MEQ TAB.ER.PRT PO SCH (08:00)
[2018-04-30] MEDS: THIAMINE 100MG TABLET PO SCH (09:00)
[2018-04-30] MEDS: MULTIVITAMIN 1 TABLET PO SCH (09:00)
[2018-04-30] MEDS: FOLIC ACID 1 MG TABLET PO SCH (09:00)
[2018-04-30] MEDS ORDERED: CAPTOPRIL 12.5 MG TABLET PO PRN (10:30)
[2018-04-30 14:00] VITALS: BP 173/130
[2018-04-30] MEDS ORDERED: LABETALOL 5MG/ML, 20ML IVPush PRN (14:30)
[2018-04-30 14:58] VITALS: BP 144/103
[2018-04-30] MEDS ORDERED: SUCRALFATE 1 GM/10 ML UDC PO SCH (16:00)
[2018-05-01] MEDS ORDERED: PANTOPROZOLE 40MG TABLET PO SCH (07:30)
== END 2018-04-30 15:14 | disposition left against medical advice (07) | DRG 381 ==
LOC: ED 20:43 → EDIP 21:19 → 4EST 22:46 → 4WST 23:04 → 4EST 23:10
PROVIDERS: ADMIT Hospitalist; ATTEND Family Medicine
DX: K22.11 Ulcer of esophagus with bleeding (principal); F10.231 Alcohol dependence with withdrawal delirium; R45.851 Suicidal ideations; E66.9 Obesity, unspecified; E87.6 Hypokalemia; Z53.29 Procedure and treatment not carried out because of patient's decision for other reasons; E80.6 Other disorders of bilirubin metabolism; D72.829 Elevated white blood cell count, unspecified; F17.210 Nicotine dependence, cigarettes, uncomplicated; I16.0 Hypertensive urgency; N28.9 Disorder of kidney and ureter, unspecified; J02.9 Acute pharyngitis, unspecified; K21.0 Gastro-esophageal reflux disease with esophagitis; Z71.6 Tobacco abuse counseling; Z87.11 Personal history of peptic ulcer disease; Z87.19 Personal history of other diseases of the digestive system; Z91.19 Patient's noncompliance with other medical treatment and regimen; Z68.30 Body mass index [BMI] 30.0-30.9, adult
CPT/HCPCS: 36415; 74022; 87806; 99285; S0028; 70543; 80048; 80053; 81003; 83690; 83735; 83880; 84484; 85025; 85610; 86705; 86706; 86708; 86709; 86803; 87081; 87340; 87880; 93005; 96361; 96372; 96374; 96375; A9585; J2405; J2550; J3411; J3475; J3480; Q0162; C9113; G0475; J0360; J2060; J7030

== ENCOUNTER 2018-06-21 19:48 | Inpatient (IN) | payer MEDICAID ==
[~2018-06-21] VITALS: Ht 172.7 cm; Wt 87.3 kg
[2018-06-21] MEDS ORDERED: PANTOPRAZOLE 40 MG IV IVPush ONE (20:00)
[2018-06-21] MEDS ORDERED: SODIUM CHLORIDE FLUSH 10ML SYR IVF ONE (20:00)
[2018-06-21] MEDS ORDERED: SODIUM CHLORIDE 0.9% 1,000ML IVBOLUS ONE (20:00)
[2018-06-21] MEDS ORDERED: DIAZEPAM 5 MG TABLET PO ONE (20:00)
[2018-06-21] MEDS ORDERED: PROMETHAZINE 25 MG/ML, 1ML IM ONE (20:00)
[2018-06-21] MEDS ORDERED: THIAMINE 100MG TABLET PO ONE (20:00)
[2018-06-21] MEDS ORDERED: PANTOPRAZOLE 40 MG IV ONE (20:03)
[2018-06-21] MEDS ORDERED: PROMETHAZINE 25 MG/ML, 1ML ONE (20:03)
[2018-06-21] MEDS ORDERED: LORazepam 2 MG/ML, 1ML ONE ×3 (20:04→22:28)
[2018-06-21] MEDS: LORazepam 2 MG/ML, 1ML IVPush PRN ×3 (20:10→22:31)
[2018-06-21 20:17] LABS: BASOPHILS # (AUTO) 0.07 x10^3/uL (0-0.1); BASOPHILS % (AUTO) 0 % (0-1); EOSINOPHILS % (AUTO) 0 % (1-7); LYMPHOCYTES # (AUTO) 2.25 x10^3/uL (1-3.4); LYMPHOCYTES % (AUTO) 13 % (22-44); MD NO; MEAN CORPUSCULAR HEMOGLOBIN 30.9 pg (27.5-34.5); MEAN CORPUSCULAR HGB CONC 33.5 g/dL (33.2-36.2); MEAN CORPUSCULAR VOLUME 92.3 fL (81-97); MONOCYTES # (AUTO) 0.51 x10^3/uL (0.2-0.8); MONOCYTES % (AUTO) 3 % (2-9); NEUTROPHILS # (AUTO) 15.19 x10^3/uL (1.8-6.8); NEUTROPHILS % (AUTO) 84 % (42-75); PLATELET COUNT 585 x10^3/uL (130-400); RED CELL DISTRIBUTION WIDTH 18.8 % (9.4-14.8)
[2018-06-21 20:29] LABS: ALANINE AMINOTRANSFERASE 29 U/L (12-78); ALBUMIN 4.3 g/dL (3.4-5.0); ANION GAP 15 mmol/L (5-15); CHLORIDE 102 mmol/L (98-107); CREATININE 1.22 mg/dL (0.7-1.3)
[2018-06-21 20:31] LABS: ALKALINE PHOSPHATASE 95 U/L (45-117); BILIRUBIN,TOTAL 0.2 mg/dL (0.2-1.0); TOTAL PROTEIN 8.8 g/dL (6.4-8.2)
[2018-06-21] MEDS ORDERED: THIAMINE 100MG TABLET ONE (20:44)
[2018-06-21] MEDS ORDERED: DIAZEPAM 5 MG TABLET ONE (20:44)
[2018-06-21] MEDS ORDERED: OMNIPAQUE 350 MG/ML, 100ML BOTTLE ONE (21:17)
[2018-06-21] MEDS ORDERED: METOCLOPRAMIDE 5 MG/ML, 2ML IVPush ONE (21:30)
[2018-06-21] MEDS ORDERED: METOCLOPRAMIDE 5 MG/ML, 2ML ONE (21:48)
[2018-06-21 23:00] VITALS: BP 165/100
[2018-06-22] MEDS ORDERED: NICOTINE 21 MG/24 HR PATCH.TD24 TD ONE
[2018-06-22] MEDS ORDERED: ALUMINUM/MAG/SIMETHICONE 30 ML UDC PO PRN
[2018-06-22] MEDS: SODIUM CHLORIDE 0.9% 1,000 ML IV SCH ×3 (00:16→16:40)
[2018-06-22] MEDS: ONDANSETRON 2MG/ML, 2ML IV PRN ×3 (00:16→16:40)
[2018-06-22] MEDS: PHENOL THROAT SPRAY BOTTLE MM PRN ×2 (00:42→07:16)
[2018-06-22 01:09] VITALS: BP 138/79
[2018-06-22] MEDS: LORazepam 2 MG/ML, 1ML IVPush PRN ×3 (01:18→16:40)
[2018-06-22] MEDS: PROMETHAZINE 25 MG/ML, 1ML IM PRN ×3 (01:32→22:08)
[2018-06-22] MEDS: LABETALOL 5MG/ML, 20ML IV PRN (03:18)
[2018-06-22 05:27] LABS: MEAN CORPUSCULAR HGB CONC 33.5 g/dL (33.2-36.2); MEAN CORPUSCULAR VOLUME 92.6 fL (81-97); MEAN PLATELET VOLUME 8.6 fL (7.4-10.4); PLATELET COUNT 488 x10^3/uL (130-400); RED BLOOD COUNT 4.77 x10^6/uL (4.38-5.82); RED CELL DISTRIBUTION WIDTH 18.4 % (9.4-14.8)
[2018-06-22 05:57] LABS: BASOPHILS # (AUTO) 0.05 x10^3/uL (0-0.1); BASOPHILS % (AUTO) 0 % (0-1); EOSINOPHILS % (AUTO) 0 % (1-7); LYMPHOCYTES # (AUTO) 1.28 x10^3/uL (1-3.4); LYMPHOCYTES % (AUTO) 7 % (22-44); MD SCAN; MONOCYTES # (AUTO) 1.12 x10^3/uL (0.2-0.8); MONOCYTES % (AUTO) 6 % (2-9); NEUTROPHILS # (AUTO) 16.54 x10^3/uL (1.8-6.8); NEUTROPHILS % (AUTO) 87 % (42-75)
[2018-06-22] MEDS: PANTOPRAZOLE 40 MG IV IVPush SCH ×2 (07:16→21:48)
[2018-06-22 07:31] VITALS: BP 153/83
[2018-06-22] MEDS: MULTIVITAMINS/MINERALS TABLET PO SCH (07:45)
[2018-06-22] MEDS: CIPROFLOXACIN/PMX 400MG/200ML 200 ML IV SCH ×2 (10:51→21:51)
[2018-06-22] MEDS: METRONIDAZOLE PMX 500MG/100ML 100 ML IV SCH ×3 (12:04→23:26)
[2018-06-22] MEDS: MORPHINE SULFATE 4 MG/ML, 1ML IVPush PRN ×3 (12:04→21:48)
[2018-06-22 14:20] VITALS: BP 156/85
[2018-06-22 18:50] VITALS: BP 149/88
[2018-06-23] VITALS (7 sets, daily range): BP systolic 154–184; BP diastolic 92–108
[2018-06-23] MEDS: METRONIDAZOLE PMX 500MG/100ML 100 ML IV SCH ×3 (04:51→20:40)
[2018-06-23] MEDS: SODIUM CHLORIDE 0.9% 1,000 ML IV SCH ×3 (04:51→19:28)
[2018-06-23] MEDS: PANTOPRAZOLE 40 MG IV IVPush SCH ×2 (08:00→20:40)
[2018-06-23 08:28] LABS: ANION GAP 7 mmol/L (5-15); CALCIUM 7.9 mg/dL (8.5-10.1); CHLORIDE 115 mmol/L (98-107); CREATININE 0.84 mg/dL (0.7-1.3)
[2018-06-23] MEDS: MULTIVITAMINS/MINERALS TABLET PO SCH (09:00)
[2018-06-23] MEDS ORDERED: PROPOFOL 10 MG/ML, 20ML ONE (11:40)
[2018-06-23] MEDS ORDERED: EPINEPHRINE SYRINGE 0.1 MG/ML, 10ML ONE (12:03)
[2018-06-23] MEDS ORDERED: ONDANSETRON 2MG/ML, 2ML ONE (12:16)
[2018-06-23] MEDS: ONDANSETRON 2MG/ML, 2ML IV PRN ×3 (12:18→20:40)
[2018-06-23] MEDS: CIPROFLOXACIN/PMX 400MG/200ML 200 ML IV SCH ×2 (12:40→23:56)
[2018-06-23] MEDS: MORPHINE SULFATE 4 MG/ML, 1ML IVPush PRN ×2 (14:48→19:28)
[2018-06-23] MEDS: LORazepam 2 MG/ML, 1ML IVPush PRN ×2 (16:13→20:40)
[2018-06-23] MEDS: PROMETHAZINE 25 MG/ML, 1ML IM PRN (19:36)
[2018-06-23] MEDS: LABETALOL 5MG/ML, 20ML IV PRN (21:07)
[2018-06-24] MEDS ORDERED: METOCLOPRAMIDE 5 MG/ML, 2ML IVPush ONE (01:00)
[2018-06-24] MEDS: MORPHINE SULFATE 4 MG/ML, 1ML IVPush PRN ×4 (01:32→23:29)
[2018-06-24 01:36] VITALS: BP 162/92
[2018-06-24] MEDS: SODIUM CHLORIDE 0.9% 1,000 ML IV SCH (02:28)
[2018-06-24] MEDS: METRONIDAZOLE PMX 500MG/100ML 100 ML IV SCH ×3 (02:28→19:49)
[2018-06-24] MEDS: ONDANSETRON 2MG/ML, 2ML IV PRN ×3 (04:59→19:48)
[2018-06-24 05:07] LABS: ANION GAP 9 mmol/L (5-15); CHLORIDE 103 mmol/L (98-107)
[2018-06-24 05:08] LABS: CREATININE 0.69 mg/dL (0.7-1.3)
[2018-06-24 05:11] LABS: BASOPHILS # (AUTO) 0.05 x10^3/uL (0-0.1); BASOPHILS % (AUTO) 0 % (0-1); EOSINOPHILS # (AUTO) 0.07 x10^3/uL (0-0.4); EOSINOPHILS % (AUTO) 1 % (1-7); LYMPHOCYTES # (AUTO) 2.18 x10^3/uL (1-3.4); LYMPHOCYTES % (AUTO) 16 % (22-44); MD NO; MEAN CORPUSCULAR HEMOGLOBIN 30.9 pg (27.5-34.5); MEAN CORPUSCULAR HGB CONC 33.2 g/dL (33.2-36.2); MEAN CORPUSCULAR VOLUME 93.1 fL (81-97); MEAN PLATELET VOLUME 8.5 fL (7.4-10.4); MONOCYTES # (AUTO) 0.72 x10^3/uL (0.2-0.8); MONOCYTES % (AUTO) 5 % (2-9); NEUTROPHILS % (AUTO) 77 % (42-75); PLATELET COUNT 335 x10^3/uL (130-400); RED BLOOD COUNT 3.83 x10^6/uL (4.38-5.82); RED CELL DISTRIBUTION WIDTH 16.7 % (9.4-14.8)
[2018-06-24] MEDS: LORazepam 2 MG/ML, 1ML IVPush PRN ×3 (06:17→16:48)
[2018-06-24] MEDS ORDERED: POTASSIUM CHLORIDE 40 MEQ in SODIUM CHLORIDE 0.9% 500 ML IV ONE (07:00)
[2018-06-24 07:56] VITALS: BP 155/99
[2018-06-24] MEDS: CALCIUM CARBONATE 500 MG TAB.CHEW PO SCH ×2 (09:00→19:48)
[2018-06-24] MEDS: THIAMINE 100MG TABLET PO SCH (09:00)
[2018-06-24] MEDS: MULTIVITAMINS/MINERALS TABLET PO SCH (09:00)
[2018-06-24] MEDS: FOLIC ACID 1 MG TABLET PO SCH (09:00)
[2018-06-24] MEDS: POTASSIUM CHLORIDE 20 MEQ TAB.ER.PRT PO SCH ×2 (09:01→16:49)
[2018-06-24] MEDS: PANTOPRAZOLE 40 MG IV IVPush SCH ×2 (09:01→19:48)
[2018-06-24 14:42] VITALS: BP 159/95
[2018-06-24] MEDS: CIPROFLOXACIN/PMX 400MG/200ML 200 ML IV SCH (15:00)
[2018-06-24] MEDS ORDERED: NICOTINE 21 MG/24 HR PATCH.TD24 TD ONE (17:00)
[2018-06-24 18:52] VITALS: BP 152/96
[2018-06-24] MEDS: PROMETHAZINE 25 MG/ML, 1ML IM PRN (23:29)
[2018-06-25 01:29] VITALS: BP 154/98
[2018-06-25] MEDS: METRONIDAZOLE PMX 500MG/100ML 100 ML IV SCH ×2 (02:10→07:57)
[2018-06-25] MEDS: SODIUM CHLORIDE 0.9% 1,000 ML IV SCH ×2 (02:10→15:23)
[2018-06-25] MEDS: ONDANSETRON 2MG/ML, 2ML IV PRN ×2 (02:25→08:03)
[2018-06-25] MEDS: CIPROFLOXACIN/PMX 400MG/200ML 200 ML IV SCH (03:32)
[2018-06-25] MEDS: MORPHINE SULFATE 4 MG/ML, 1ML IVPush PRN (05:05)
[2018-06-25 05:44] LABS: CHLORIDE 105 mmol/L (98-107)
[2018-06-25 05:54] LABS: ALANINE AMINOTRANSFERASE 15 U/L (12-78); ALBUMIN 2.9 g/dL (3.4-5.0); ALKALINE PHOSPHATASE 63 U/L (45-117); ANION GAP 9 mmol/L (5-15); BILIRUBIN,TOTAL 0.5 mg/dL (0.2-1.0); CALCIUM 8.2 mg/dL (8.5-10.1); CREATININE 0.67 mg/dL (0.7-1.3); TOTAL PROTEIN 6.2 g/dL (6.4-8.2)
[2018-06-25 06:02] LABS: BASOPHILS # (AUTO) 0.03 x10^3/uL (0-0.1); BASOPHILS % (AUTO) 0 % (0-1); EOSINOPHILS # (AUTO) 0.26 x10^3/uL (0-0.4); EOSINOPHILS % (AUTO) 3 % (1-7); LYMPHOCYTES # (AUTO) 3.14 x10^3/uL (1-3.4); LYMPHOCYTES % (AUTO) 30 % (22-44); MD NO; MEAN CORPUSCULAR HEMOGLOBIN 31.5 pg (27.5-34.5); MEAN CORPUSCULAR HGB CONC 33.8 g/dL (33.2-36.2); MEAN CORPUSCULAR VOLUME 93.3 fL (81-97); MEAN PLATELET VOLUME 8.4 fL (7.4-10.4); MONOCYTES # (AUTO) 0.75 x10^3/uL (0.2-0.8); MONOCYTES % (AUTO) 7 % (2-9); NEUTROPHILS # (AUTO) 6.24 x10^3/uL (1.8-6.8); NEUTROPHILS % (AUTO) 60 % (42-75); PLATELET COUNT 360 x10^3/uL (130-400); RED BLOOD COUNT 3.64 x10^6/uL (4.38-5.82); RED CELL DISTRIBUTION WIDTH 16.4 % (9.4-14.8)
[2018-06-25 07:33] VITALS: BP 131/79
[2018-06-25] MEDS: MULTIVITAMINS/MINERALS TABLET PO SCH (07:57)
[2018-06-25] MEDS: POTASSIUM CHLORIDE 20 MEQ TAB.ER.PRT PO SCH ×3 (07:57→20:30)
[2018-06-25] MEDS: PANTOPROZOLE 40MG TABLET PO SCH ×2 (07:57→20:28)
[2018-06-25] MEDS: FOLIC ACID 1 MG TABLET PO SCH (07:57)
[2018-06-25] MEDS: THIAMINE 100MG TABLET PO SCH (07:57)
[2018-06-25] MEDS: OXYcodone/APAP 5/325MG TABLET PO PRN ×2 (10:48→17:01)
[2018-06-25] MEDS: metroNIDAZOLE 500 MG TABLET PO SCH ×2 (11:46→20:27)
[2018-06-25] MEDS: AMOXICILLIN/CLAV 875-125MG TABLET PO SCH ×2 (11:46→20:28)
[2018-06-25 12:21] VITALS: BP 159/97
[2018-06-25] MEDS ORDERED: NICOTINE 14MG/24 HR PATCH.TD24 TD SCH (17:00)
[2018-06-25 19:12] VITALS: BP 129/85
[2018-06-26 01:46] VITALS: BP 101/61
[2018-06-26] MEDS: SODIUM CHLORIDE 0.9% 1,000 ML IV SCH (02:10)
[2018-06-26] MEDS: metroNIDAZOLE 500 MG TABLET PO SCH ×2 (04:39→12:10)
[2018-06-26 05:42] LABS: BASOPHILS # (AUTO) 0.03 x10^3/uL (0-0.1); BASOPHILS % (AUTO) 0 % (0-1); EOSINOPHILS # (AUTO) 0.42 x10^3/uL (0-0.4); EOSINOPHILS % (AUTO) 4 % (1-7); LYMPHOCYTES # (AUTO) 2.83 x10^3/uL (1-3.4); LYMPHOCYTES % (AUTO) 29 % (22-44); MD NO; MEAN CORPUSCULAR HEMOGLOBIN 31.3 pg (27.5-34.5); MEAN CORPUSCULAR HGB CONC 33.8 g/dL (33.2-36.2); MEAN CORPUSCULAR VOLUME 92.7 fL (81-97); MEAN PLATELET VOLUME 8.1 fL (7.4-10.4); MONOCYTES # (AUTO) 0.78 x10^3/uL (0.2-0.8); MONOCYTES % (AUTO) 8 % (2-9); NEUTROPHILS # (AUTO) 5.58 x10^3/uL (1.8-6.8); NEUTROPHILS % (AUTO) 58 % (42-75); PLATELET COUNT 343 x10^3/uL (130-400); RED BLOOD COUNT 3.46 x10^6/uL (4.38-5.82)
[2018-06-26 05:44] LABS: ANION GAP 8 mmol/L (5-15); CALCIUM 8.1 mg/dL (8.5-10.1); CHLORIDE 107 mmol/L (98-107); CREATININE 0.65 mg/dL (0.7-1.3)
[2018-06-26 07:02] VITALS: BP 132/75
[2018-06-26] MEDS ORDERED: PANT40TA5 PO (09:49)
[2018-06-26] MEDS ORDERED: METR500T PO (09:49)
[2018-06-26] MEDS ORDERED: FOLI-17 PO (09:49)
[2018-06-26] MEDS ORDERED: POTA20TA6 PO (09:49)
[2018-06-26] MEDS ORDERED: AMOX1TAB12 PO (09:49)
[2018-06-26] MEDS ORDERED: MULT-484 PO (09:49)
[2018-06-26] MEDS ORDERED: THIA100T67 PO (09:49)
[2018-06-26] MEDS: THIAMINE 100MG TABLET PO SCH (12:05)
[2018-06-26] MEDS: AMOXICILLIN/CLAV 875-125MG TABLET PO SCH (12:05)
[2018-06-26] MEDS: MULTIVITAMINS/MINERALS TABLET PO SCH (12:05)
[2018-06-26] MEDS: PANTOPROZOLE 40MG TABLET PO SCH (12:06)
[2018-06-26] MEDS: POTASSIUM CHLORIDE 20 MEQ TAB.ER.PRT PO SCH (12:06)
[2018-06-26] MEDS: FOLIC ACID 1 MG TABLET PO SCH (12:06)
[2018-06-26 12:27] VITALS: BP 136/89
== END 2018-06-26 15:00 | disposition home or self-care (01) | DRG 380 ==
LOC: ED 20:25 → EDIP 22:08 → 3NE 22:43 → DCLOUNGE 06-26 14:55
PROVIDERS: ADMIT Internal Medicine; ATTEND Internal Medicine
PROC: 0D558ZZ Destruction of Esophagus, Via Natural or Artificial Opening Endoscopic (ICD-10-PCS; 2018-06-23)
PROC: 3E0G8GC Introduction of Other Therapeutic Substance into Upper GI, Via Natural or Artificial Opening Endoscopic (ICD-10-PCS; principal; 2018-06-23 11:30)
DX: K22.10 Ulcer of esophagus without bleeding (principal); G92 Toxic encephalopathy; E87.0 Hyperosmolality and hypernatremia; E87.1 Hypo-osmolality and hyponatremia; K92.0 Hematemesis; D64.9 Anemia, unspecified; E83.51 Hypocalcemia; E87.6 Hypokalemia; F10.229 Alcohol dependence with intoxication, unspecified; F17.200 Nicotine dependence, unspecified, uncomplicated; K21.9 Gastro-esophageal reflux disease without esophagitis; K29.20 Alcoholic gastritis without bleeding; K41.20 Bilateral femoral hernia, without obstruction or gangrene, not specified as recurrent; K52.9 Noninfective gastroenteritis and colitis, unspecified; Z87.11 Personal history of peptic ulcer disease; Z87.19 Personal history of other diseases of the digestive system
CPT/HCPCS: 36415; 71045; 74177; 80048; 80053; 80307; 83605; 83690; 83735; 84100; 84145; 85018; 85025; 90656; 93005; 96361; 96372; 96374; 96375; 99285; G0378; J0744; J2405; J2550; J2704; J3480; Q9967; C9113; J2060; J2765; J7030; J7040

== ENCOUNTER 2020-09-16 23:08 | Emergency (ER) | payer MEDICAID ==
[~2020-09-16] VITALS: Ht 172.7 cm; Wt 81.1 kg
[~2020-09-16 23:08] MED LIST changes: +AMOX1TAB12 PO; +FOLI-17 PO; +METR500T PO; +MULT-484 PO; +PANT40TA6 PO; +POTA20TA6 PO; +THIA100T67 PO
[2020-09-16] MEDS ORDERED: ONDANSETRON 2MG/ML, 2ML ONE (23:53)
[2020-09-17] MEDS ORDERED: SODIUM CHLORIDE 0.9% 1,000ML IVBOLUS ONE
[2020-09-17] MEDS ORDERED: ONDANSETRON 2MG/ML, 2ML IVPush ONE
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
[2020-09-17 00:10] LABS: BASOPHILS % (AUTO) 1 % (0-1); EOSINOPHILS % (AUTO) 0 % (1-7); LYMPHOCYTES % (AUTO) 18 % (22-44); MEAN CORPUSCULAR HEMOGLOBIN 34.3 pg (27.5-34.5); MEAN CORPUSCULAR HGB CONC 34.3 g/dL (33.2-36.2); MEAN PLATELET VOLUME 7.5 fL (7.4-10.4); MONOCYTES % (AUTO) 8 % (2-9); NEUTROPHILS % (AUTO) 73 % (42-75); PLATELET COUNT 290 x10^3/uL (130-400); RED BLOOD COUNT 4.43 x10^6/uL (4.38-5.82); RED CELL DISTRIBUTION WIDTH 15.1 % (9.4-14.8)
[2020-09-17 00:13] LABS: MD NO
[2020-09-17 00:23] LABS: CHLORIDE 96 mmol/L (98-107)
[2020-09-17 00:33] LABS: ALANINE AMINOTRANSFERASE 39 U/L (12-78); ALBUMIN 4.2 g/dL (3.4-5.0); ALKALINE PHOSPHATASE 106 U/L (45-117); ANION GAP 13 mmol/L (5-15); BILIRUBIN,TOTAL 0.6 mg/dL (0.2-1.0); CALCIUM 9.3 mg/dL (8.5-10.1); CREATININE 1.19 mg/dL (0.7-1.3); TOTAL PROTEIN 8.2 g/dL (6.4-8.2)
[2020-09-17] MEDS ORDERED: MAALOX/HYOSCYAMINE/LIDOCAINE 45 ML BTL PO ONE (01:00)
[2020-09-17] MEDS ORDERED: BUPRENORPHINE HCL 2 MG TAB.SUBL SL ONE (01:00)
[2020-09-17] MEDS ORDERED: MAALOX/HYOSCYAMINE/LIDOCAINE 45 ML BTL ONE (01:14)
[2020-09-17 01:37] VITALS: BP 132/77
--- NOTE | 2020-09-17 01:37 | NUR ---
PT MEDICATED PER MAR
== END 2020-09-17 01:58 | disposition home or self-care (01) ==
LOC: ED 09-17 01:25
DX: F11.20 Opioid dependence, uncomplicated (principal); R19.7 Diarrhea, unspecified; K59.00 Constipation, unspecified; R11.2 Nausea with vomiting, unspecified; K21.9 Gastro-esophageal reflux disease without esophagitis; M79.10 Myalgia, unspecified site; R10.84 Generalized abdominal pain; F17.210 Nicotine dependence, cigarettes, uncomplicated
CPT/HCPCS: 36415; 80053; 83690; 85025; 96361; 96374; 99283; 99406; J2405; J7030

== ENCOUNTER 2020-09-19 17:10 | Inpatient (IN) | payer MEDICAID ==
[~2020-09-19] VITALS: Ht 172.7 cm; Wt 82.0 kg
[2020-09-19 17:48] LABS: BASOPHILS % (AUTO) 1 % (0-1); EOSINOPHILS % (AUTO) 0 % (1-7); LYMPHOCYTES % (AUTO) 25 % (22-44); MEAN CORPUSCULAR HEMOGLOBIN 34.6 pg (27.5-34.5); MEAN CORPUSCULAR HGB CONC 34.6 g/dL (33.2-36.2); MEAN PLATELET VOLUME 7.7 fL (7.4-10.4); MONOCYTES % (AUTO) 7 % (2-9); NEUTROPHILS % (AUTO) 67 % (42-75); PLATELET COUNT 227 x10^3/uL (130-400); RED CELL DISTRIBUTION WIDTH 14.9 % (9.4-14.8)
[2020-09-19 17:52] LABS: MD NO
[2020-09-19 17:58] LABS: ALANINE AMINOTRANSFERASE 46 U/L (12-78); ANION GAP 15 mmol/L (5-15); CALCIUM 8.6 mg/dL (8.5-10.1); CHLORIDE 94 mmol/L (98-107); CREATININE 1.07 mg/dL (0.7-1.3)
[2020-09-19 18:00] LABS: ALKALINE PHOSPHATASE 103 U/L (45-117); BILIRUBIN,TOTAL 0.6 mg/dL (0.2-1.0); TOTAL PROTEIN 7.6 g/dL (6.4-8.2)
[2020-09-19 18:01] LABS: SALICYLATE LEVEL < 1.7 mg/dL (2.8-20.0)
[2020-09-19] MEDS ORDERED: METH10OR12 PO (18:03)
[2020-09-19] MEDS ORDERED: LORazepam 2 MG/ML, 1ML ONE ×2 (18:21→20:08)
[2020-09-19] MEDS ORDERED: MAALOX/HYOSCYAMINE/LIDOCAINE 45 ML BTL ONE (18:21)
[2020-09-19] MEDS ORDERED: FAMOTIDINE 20 MG/2 ML ONE (18:22)
[2020-09-19] MEDS ORDERED: SODIUM CHLORIDE FLUSH 10ML SYR IVF ONE (18:30)
[2020-09-19] MEDS ORDERED: POTASSIUM CHLORIDE 40 MEQ in SODIUM CHLORIDE 0.9% 500 ML IV ONE ×2 (18:30→21:30)
[2020-09-19] MEDS ORDERED: SODIUM CHLORIDE 0.9% 1,000ML IVBOLUS ONE (18:30)
[2020-09-19] MEDS ORDERED: THIAMINE IV ONE (18:30)
[2020-09-19] MEDS ORDERED: [UNRECOGNIZED DRUG - OTHER] IV ONE (18:30)
[2020-09-19] MEDS ORDERED: ONDANSETRON 2MG/ML, 2ML IVPush ONE (18:30)
[2020-09-19] MEDS ORDERED: MAGNESIUM SULFATE IV ONE (18:30)
[2020-09-19] MEDS ORDERED: FOLIC ACID IV ONE (18:30)
[2020-09-19] MEDS ORDERED: FAMOTIDINE 20 MG/2 ML IVPush ONE (18:30)
[2020-09-19] MEDS ORDERED: MAALOX/HYOSCYAMINE/LIDOCAINE 45 ML BTL PO ONE (18:30)
--- NOTE | 2020-09-19 18:55 | NUR ---
REPORT RECIEVED FROM TORITO ISSA. BILL ATTEMPTING IV AND MEDICATIONS AT THIS TIME
[2020-09-19] MEDS: LORazepam 2 MG/ML, 1ML IVPush PRN ×2 (19:03→20:11)
[2020-09-19] MEDS ORDERED: ONDANSETRON 2MG/ML, 2ML ONE ×2 (19:06→22:14)
--- NOTE | 2020-09-19 19:16 | NUR ---
PIV STARTED AND PT MEDICATED WITH ATIVAN, ZOFRAN, NS BOLUS AND PEPCID IVP AND GI COCKTAIL.
--- NOTE | 2020-09-19 20:00 | NUR ---
AWAITING BANANA BAG FROM PHARMACY.
[2020-09-19 20:16] LABS: AMPHETAMINE SCREEN, URINE Negative (Negative); BARBITURATE SCREEN, URINE Negative (Negative); BENZODIAZEPINE SCREEN, URINE Negative (Negative); CANNABINOID SCREEN, URINE Negative (Negative); COCAINE SCREEN, URINE Negative (Negative); METHADONE SCREEN, URINE Positive (Negative); OPIATE SCREEN, URINE Positive (Negative)
--- NOTE | 2020-09-19 20:47 | NUR ---
spoke with jeimy, they are working on the bana bag for the patient now
[2020-09-19] MEDS ORDERED: PROMETHAZINE 25 MG/ML, 1ML IM PRN (21:30)
[2020-09-19] MEDS ORDERED: LORazepam 0.5MG TABLET PO PRN (21:30)
[2020-09-19] MEDS ORDERED: BISACODYL 10 MG SUPP PR PRN (21:30)
[2020-09-19] MEDS ORDERED: OXYcodone IR 5MG TABLET PO PRN (21:30)
[2020-09-19] MEDS ORDERED: THIAMINE 200 MG in SODIUM CHLORIDE 0.9% 50 ML IV ONE (21:30)
[2020-09-19] MEDS ORDERED: LORazepam 1MG TABLET PO PRN ×4 (21:30)
[2020-09-19] MEDS ORDERED: ONDANSETRON 2MG/ML, 2ML IVPush PRN (21:30)
[2020-09-19] MEDS: SODIUM CHLORIDE 0.9% 1,000 ML IV SCH (21:30)
[2020-09-19] MEDS ORDERED: POLYETHYLENE GLYCOL 17 GM PACKET PO PRN (21:30)
[2020-09-19] MEDS ORDERED: LORazepam 2 MG/ML, 1ML IV PRN ×5 (21:30)
[2020-09-19] MEDS ORDERED: hydrALAzine 20 MG/ML, 1ML IVPush PRN (21:30)
[2020-09-19] MEDS ORDERED: DOCUSATE 100 MG CAPSULE PO PRN (21:30)
[2020-09-19] MEDS ORDERED: morphine SULFATE 10 MG/ML, 1ML IVPush PRN (21:30)
[2020-09-19] MEDS ORDERED: ONDANSETRON ODT 4 MG PO PRN (21:30)
--- NOTE | 2020-09-19 22:48 | NUR ---
PT RESTING IN GURNEY, AWAITING PLACEMENT UPSTAIRS, PT STATES NAUSEA HAS DECREASED AND HAS NO OTHER NEEDS AT THIS TIME. POTASSIUM AND BANANA BAG STILL RUNNING. IN LINE OF SIGHT OF SITTER
[2020-09-19] MEDS ORDERED: PANTOPRAZOLE 40 MG IV ONE (22:53)
[2020-09-19] MEDS: PANTOPRAZOLE 40 MG IV IVPush SCH (22:56)
--- NOTE | 2020-09-19 23:07 | NUR ---
REPORT GIVEN TO TORITO KAUR
[2020-09-20 00:25] VITALS: BP 135/82
[2020-09-20] MEDS: SODIUM CHLORIDE 0.9% 1,000 ML IV SCH ×2 (04:22→10:40)
[2020-09-20 05:13] LABS: BASOPHILS % (AUTO) 0 % (0-1); EOSINOPHILS % (AUTO) 1 % (1-7); LYMPHOCYTES % (AUTO) 29 % (22-44); MD NO; MEAN CORPUSCULAR HEMOGLOBIN 34.8 pg (27.5-34.5); MEAN CORPUSCULAR HGB CONC 33.9 g/dL (33.2-36.2); MEAN PLATELET VOLUME 8.2 fL (7.4-10.4); MONOCYTES % (AUTO) 5 % (2-9); NEUTROPHILS % (AUTO) 64 % (42-75); PLATELET COUNT 154 x10^3/uL (130-400); RED BLOOD COUNT 3.64 x10^6/uL (4.38-5.82)
[2020-09-20 05:24] LABS: ALBUMIN 2.8 g/dL (3.4-5.0); ANION GAP 6 mmol/L (5-15); CALCIUM 7.8 mg/dL (8.5-10.1); CHLORIDE 103 mmol/L (98-107)
[2020-09-20 05:32] LABS: ALANINE AMINOTRANSFERASE 34 U/L (12-78); ALKALINE PHOSPHATASE 86 U/L (45-117); BILIRUBIN,TOTAL 0.8 mg/dL (0.2-1.0); CHOL/HDL RATIO 1.5; CHOLESTEROL, TOTAL 157 mg/dL (140-239); CREATININE 0.89 mg/dL (0.7-1.3); HDL CHOL % 69 % (26-37); HDL CHOLESTEROL (DIRECT) 108 mg/dL (40-60); LDL CHOLESTEROL,CALCULATED 40 mg/dL (54-169); LDL/HDL RATIO 0.4 (0.5-3.0); TOTAL PROTEIN 5.5 g/dL (6.4-8.2); TRIGLYCERIDES 47 mg/dL (50-200); VLDL CHOLESTEROL 9 mg/dL (0-25)
[2020-09-20] MEDS: METHADONE 5 MG TABLET PO SCH ×4 (05:51→17:34)
[2020-09-20] MEDS ORDERED: POTASSIUM CHLORIDE 20 MEQ TAB.ER.PRT PO ONE (07:00)
[2020-09-20 07:07] VITALS: BP 143/84
[2020-09-20] MEDS: THIAMINE 100MG TABLET PO SCH (08:30)
[2020-09-20] MEDS: PANTOPRAZOLE 40 MG IV IVPush SCH ×2 (08:30→21:06)
[2020-09-20] MEDS: FOLIC ACID 1 MG TABLET PO SCH (08:30)
[2020-09-20] MEDS: MULTIVITAMIN 1 TABLET PO SCH (08:30)
[2020-09-20 12:16] VITALS: BP 134/80
[2020-09-20] MEDS: NICOTINE 14MG/24 HR PATCH.TD24 TD SCH (13:00)
[2020-09-20 20:19] VITALS: BP 129/80
[2020-09-21 00:49] VITALS: BP 115/77
[2020-09-21] MEDS ORDERED: METHADONE 10 MG TABLET ONE ×2 (01:19→15:15)
[2020-09-21 04:48] LABS: ANION GAP 9 mmol/L (5-15); CALCIUM 8.2 mg/dL (8.5-10.1); CHLORIDE 105 mmol/L (98-107); CREATININE 0.77 mg/dL (0.7-1.3)
[2020-09-21] MEDS: METHADONE 5 MG TABLET PO SCH ×5 (06:01→23:15)
[2020-09-21 07:43] VITALS: BP 154/92
[2020-09-21] MEDS: PANTOPRAZOLE 40 MG IV IVPush SCH ×2 (08:51→20:28)
[2020-09-21] MEDS: CHLORDIAZEPOXIDE 25 MG CAPSULE PO SCH ×3 (08:52→20:28)
[2020-09-21] MEDS: MULTIVITAMIN 1 TABLET PO SCH (08:52)
[2020-09-21] MEDS: FOLIC ACID 1 MG TABLET PO SCH (08:52)
[2020-09-21] MEDS: THIAMINE 100MG TABLET PO SCH (08:52)
[2020-09-21] MEDS: NICOTINE 14MG/24 HR PATCH.TD24 TD SCH (12:39)
[2020-09-21 14:24] VITALS: BP 132/78
[2020-09-21 19:30] VITALS: BP 132/90
[2020-09-22 00:45] VITALS: BP 139/86
[2020-09-22] MEDS: CHLORDIAZEPOXIDE 25 MG CAPSULE PO SCH ×3 (02:02→19:58)
[2020-09-22 06:25] VITALS: BP 132/84
[2020-09-22] MEDS: MULTIVITAMIN 1 TABLET PO SCH (07:46)
[2020-09-22] MEDS: FOLIC ACID 1 MG TABLET PO SCH (07:46)
[2020-09-22] MEDS: PANTOPRAZOLE 40 MG IV IVPush SCH (07:46)
[2020-09-22] MEDS: THIAMINE 100MG TABLET PO SCH (07:47)
[2020-09-22] MEDS: METHADONE 5 MG TABLET PO SCH ×3 (07:47→22:28)
[2020-09-22] MEDS ORDERED: CHLORDIAZEPOXIDE 25 MG CAPSULE PO SCH (08:30)
[2020-09-22] MEDS: NICOTINE 14MG/24 HR PATCH.TD24 TD SCH (12:14)
[2020-09-22 12:15] VITALS: BP 133/72
[2020-09-22] MEDS: OMEPRAZOLE 20 MG CAPSULE.DR PO SCH (15:52)
[2020-09-22 18:31] VITALS: BP 104/83
[2020-09-23 01:53] VITALS: BP 161/94
[2020-09-23] MEDS: OMEPRAZOLE 20 MG CAPSULE.DR PO SCH (05:47)
[2020-09-23 06:40] VITALS: BP 114/72
[2020-09-23] MEDS: MULTIVITAMIN 1 TABLET PO SCH (07:33)
[2020-09-23] MEDS: THIAMINE 100MG TABLET PO SCH (07:33)
[2020-09-23] MEDS: METHADONE 5 MG TABLET PO SCH (07:33)
[2020-09-23] MEDS: FOLIC ACID 1 MG TABLET PO SCH (07:33)
[2020-09-23] MEDS: CHLORDIAZEPOXIDE 25 MG CAPSULE PO SCH (07:33)
[2020-09-23] MEDS ORDERED: OMEP-110 PO (08:26)
[2020-09-23] MEDS ORDERED: METHADONE 10 MG TABLET PO ONE (08:30)
== END 2020-09-23 10:33 | disposition home or self-care (01) | DRG 189 ==
LOC: ED 19:08 → EDIP 20:21 → 4WST 23:28 → DCLOUNGE 09-23 10:22
PROVIDERS: ADMIT Internal Medicine; ATTEND Family Medicine
DX: J96.01 Acute respiratory failure with hypoxia (principal); R45.851 Suicidal ideations; F10.239 Alcohol dependence with withdrawal, unspecified; F11.23 Opioid dependence with withdrawal; K29.20 Alcoholic gastritis without bleeding; F10.229 Alcohol dependence with intoxication, unspecified; F06.4 Anxiety disorder due to known physiological condition; E87.6 Hypokalemia; F17.210 Nicotine dependence, cigarettes, uncomplicated; E83.42 Hypomagnesemia; F32.9 Major depressive disorder, single episode, unspecified; Z87.11 Personal history of peptic ulcer disease; Z87.19 Personal history of other diseases of the digestive system; K29.00 Acute gastritis without bleeding
CPT/HCPCS: 36415; 71045; 80048; 80053; 80061; 80299; 80307; 80320; 80329; 83690; 83735; 84100; 84443; 85025; 93005; 96361; 96374; 96375; 96376; G0378; J2405; J3411; J3475; J3480; C9113; G0480; J2060; J7030; J7040

== ENCOUNTER 2021-02-19 13:04 | Inpatient (IN) | payer MEDICAID ==
[~2021-02-19] VITALS: Ht 170.2 cm; Wt 91.3 kg
[~2021-02-19 13:04] MED LIST changes: -FOLI-17 PO; +FOLI1TAB32 PO; +METH10OR12 PO; +OMEP-110 PO
[2021-02-19] MEDS ORDERED: SODIUM CHLORIDE 0.9% 1,000ML IVBOLUS ONE ×2 (13:30→15:00)
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
[2021-02-19 13:56] LABS: MEAN CORPUSCULAR HEMOGLOBIN 35.7 pg (27.5-34.5); MEAN PLATELET VOLUME 9.3 fL (7.4-10.4); PLATELET COUNT 210 x10^3/uL (130-400); RED BLOOD COUNT 4.73 x10^6/uL (4.38-5.82); RED CELL DISTRIBUTION WIDTH 14.4 % (9.4-14.8)
[2021-02-19 14:07] LABS: CALCIUM 8.3 mg/dL (8.5-10.1); CHLORIDE 91 mmol/L (98-107); CREATININE 2.95 mg/dL (0.7-1.3)
[2021-02-19 14:08] LABS: ALANINE AMINOTRANSFERASE 221 U/L (12-78); ALBUMIN 3.7 g/dL (3.4-5.0)
[2021-02-19 14:13] LABS: ANION GAP 22 mmol/L (5-15)
[2021-02-19 14:21] LABS: <PLATELET ESTIMATE> ADEQUATE; LYMPH#(MANUAL) 1.69 x10^3/uL (1-3.4); LYMPHS% (MANUAL) 13 % (22-44); MONOS#(MANUAL) 1.82 x10^3/uL (0.3-2.7); MONOS% (MANUAL) 14 % (2-9); SEG#(MANUAL) 9.49 x10^3/uL (1.8-6.8); SEGS% (MANUAL) 73 % (42-75)
[2021-02-19 14:22] LABS: <PLT MORPHOLOGY> NORMAL PLT MORPH
[2021-02-19 14:23] LABS: ANISOCYTOSIS 1+; POLYCHROMASIA 1+; STOMATOCYTES 1+
--- NOTE | 2021-02-19 14:31 | NUR ---
OMAR RN: PT RESTING IN ROOM. TUBE CUTTER ON. NSR NOTED. CALL LIGHT IN PLACE.
[2021-02-19 14:33] LABS: ALKALINE PHOSPHATASE 77 U/L (45-117); BILIRUBIN,TOTAL 1.3 mg/dL (0.2-1.0); TOTAL PROTEIN 7.9 g/dL (6.4-8.2)
[2021-02-19] MEDS ORDERED: POTASSIUM CHLORIDE 40 MEQ in SODIUM CHLORIDE 0.9% 500 ML IV ONE ×2 (15:00→21:00)
[2021-02-19] MEDS ORDERED: SODIUM CHLORIDE 0.9% 1,000 ML IV ONE (15:00)
--- NOTE | 2021-02-19 15:06 | NUR ---
BREAK RN: REPORT GIVEN TO TORITO ELIAS
[2021-02-19 15:26] LABS: CREATINE KINASE, TOTAL 25889 U/L (39-308)
--- NOTE | 2021-02-19 15:31 | NUR ---
PT SLEEPING, NAD. PT AROUSABLE TO VOICE. PT ASKED TO PROVIDE URINE SPECIMEN AND PT STATES UNABLE. URINAL AT BS. CALL LIGHT WITHIN REACH. NS BOLUS INFUSING.
--- NOTE | 2021-02-19 15:43 | NUR ---
MED REQUEST TO PHARMACY FOR NS +KCL IV. 2ND LITER NS BOLUS INFUSING. VSS/UPDATED IN COMPUTER.
[2021-02-19] MEDS ORDERED: LORazepam 2 MG/ML, 1ML IV PRN ×3 (16:00)
[2021-02-19] MEDS: OMEPRAZOLE 20 MG CAPSULE.DR PO SCH (16:00)
[2021-02-19] MEDS ORDERED: ONDANSETRON 2MG/ML, 2ML IVPush PRN (16:00)
[2021-02-19] MEDS ORDERED: LORazepam 1MG TABLET PO PRN ×2 (16:00)
[2021-02-19] MEDS ORDERED: ONDANSETRON ODT 4 MG PO PRN (16:00)
[2021-02-19] MEDS ORDERED: NS + 40MEQ KCL 1,000 ML IV ONE (16:41)
[2021-02-19] MEDS: NS + 40MEQ KCL 1,000 ML IV SCH (16:52)
--- NOTE | 2021-02-19 17:08 | NUR ---
REPORT TO EDITH ALVAREZ READY FOR TRANSPORT TO FLOOR.
[2021-02-19 18:00] VITALS: BP 121/81
[2021-02-19] MEDS: LACTOBACILLUS CHEW TABLET PO SCH ×2 (18:32→21:03)
[2021-02-19] MEDS: HEPARIN 5,000 UNITS/ML, 1ML SQ SCH (18:32)
[2021-02-19 19:34] VITALS: BP 129/90
[2021-02-19 19:50] LABS: MICROSCOPIC AUTO
[2021-02-19 19:58] LABS: AMPHETAMINE SCREEN, URINE Negative (Negative); BARBITURATE SCREEN, URINE Negative (Negative); BENZODIAZEPINE SCREEN, URINE Negative (Negative); CANNABINOID SCREEN, URINE Negative (Negative); COCAINE SCREEN, URINE Negative (Negative); METHADONE SCREEN, URINE Positive (Negative); OPIATE SCREEN, URINE Negative (Negative)
[2021-02-19] MEDS ORDERED: NS + 40MEQ KCL 500 ML IV ONE (20:30)
[2021-02-19] MEDS: THIAMINE 100MG TABLET PO SCH (21:03)
[2021-02-19 22:46] VITALS: BP 121/81
[2021-02-20 00:58] VITALS: BP 127/83
[2021-02-20] MEDS: HEPARIN 5,000 UNITS/ML, 1ML SQ SCH ×3 (02:23→20:28)
[2021-02-20] MEDS: OMEPRAZOLE 20 MG CAPSULE.DR PO SCH ×2 (05:03→16:01)
[2021-02-20 05:24] LABS: MEAN CORPUSCULAR HGB CONC 34.9 g/dL (33.2-36.2); MEAN PLATELET VOLUME 8.9 fL (7.4-10.4); PLATELET COUNT 150 x10^3/uL (130-400); RED BLOOD COUNT 3.62 x10^6/uL (4.38-5.82); RED CELL DISTRIBUTION WIDTH 14.4 % (9.4-14.8)
[2021-02-20 05:54] LABS: BAND#(MANUAL) 0.45 x10^3/uL; BANDS%(MANUAL) 5 % (0-7); LYMPH#(MANUAL) 1.07 x10^3/uL (1-3.4); LYMPHS% (MANUAL) 12 % (22-44); MONOS#(MANUAL) 1.96 x10^3/uL (0.3-2.7); MONOS% (MANUAL) 22 % (2-9); SEG#(MANUAL) 5.43 x10^3/uL (1.8-6.8); SEGS% (MANUAL) 61 % (42-75)
[2021-02-20 05:55] LABS: <PLATELET ESTIMATE> DECREASED; <PLT MORPHOLOGY> NORMAL PLT MORPH; ANISOCYTOSIS 1+
[2021-02-20 05:56] LABS: POLYCHROMASIA 1+
[2021-02-20 06:44] LABS: ALANINE AMINOTRANSFERASE 151 U/L (12-78); ALBUMIN 2.5 g/dL (3.4-5.0); ANION GAP 10 mmol/L (5-15); CALCIUM 7.5 mg/dL (8.5-10.1); CHLORIDE 100 mmol/L (98-107); CREATININE 1.56 mg/dL (0.7-1.3)
[2021-02-20 07:10] LABS: ALKALINE PHOSPHATASE 52 U/L (45-117); BILIRUBIN,TOTAL 0.9 mg/dL (0.2-1.0); CREATINE KINASE, TOTAL 12627 U/L (39-308); TOTAL PROTEIN 5.5 g/dL (6.4-8.2)
[2021-02-20 07:23] VITALS: BP 107/67
[2021-02-20] MEDS ORDERED: POTASSIUM CHLORIDE 20 MEQ TAB.ER.PRT PO ONE ×2 (08:00→20:00)
[2021-02-20] MEDS: THIAMINE 100MG TABLET PO SCH ×2 (08:29→20:28)
[2021-02-20] MEDS: LACTOBACILLUS CHEW TABLET PO SCH ×3 (08:29→20:28)
[2021-02-20] MEDS: NS + 40MEQ KCL 1,000 ML IV SCH ×2 (10:31→16:01)
[2021-02-20 12:30] VITALS: BP 103/65
[2021-02-20 13:36] LABS: ABSOLUTE RETICS # 0.067 x10^6/uL (0.5-1.5); CALCIUM 7.8 mg/dL (8.5-10.1); RED BLOOD COUNT 3.69 x10^6/uL (4.38-5.82); RETICULOCYTE COUNT % 1.82 % (0.5-1.5)
[2021-02-20] MEDS: LORazepam 0.5MG TABLET PO PRN (13:36)
[2021-02-20 13:40] LABS: MICROSCOPIC INDICATED
[2021-02-20 13:49] LABS: CREATININE,URINE RANDOM 82.7 mg/dL
[2021-02-20 14:52] LABS: POTASSIUM,URINE RANDOM 8 mmol/L; SODIUM,URINE RANDOM 8 mmol/L
[2021-02-20 14:53] LABS: CHLORIDE,URINE RANDOM < 10 mmol/L
[2021-02-20 19:53] VITALS: BP 108/69
[2021-02-20 20:29] VITALS: BP 113/70
[2021-02-21] MEDS: NS + 40MEQ KCL 1,000 ML IV SCH ×3 (00:37→18:34)
[2021-02-21 01:51] VITALS: BP 108/67
[2021-02-21] MEDS: HEPARIN 5,000 UNITS/ML, 1ML SQ SCH ×3 (03:39→18:34)
[2021-02-21] MEDS: OMEPRAZOLE 20 MG CAPSULE.DR PO SCH ×2 (05:12→16:07)
[2021-02-21 05:45] LABS: CHLORIDE 111 mmol/L (98-107)
[2021-02-21 05:49] LABS: BASOPHILS % (AUTO) 0 % (0-1); EOSINOPHILS % (AUTO) 2 % (1-7); LYMPHOCYTES % (AUTO) 32 % (22-44); MEAN CORPUSCULAR HGB CONC 34.4 g/dL (33.2-36.2); MEAN PLATELET VOLUME 8.9 fL (7.4-10.4); MONOCYTES % (AUTO) 23 % (2-9); NEUTROPHILS % (AUTO) 43 % (42-75); PLATELET COUNT 216 x10^3/uL (130-400); RED BLOOD COUNT 3.38 x10^6/uL (4.38-5.82); RED CELL DISTRIBUTION WIDTH 14.7 % (9.4-14.8)
[2021-02-21 06:02] LABS: ALANINE AMINOTRANSFERASE 134 U/L (12-78); ALBUMIN 2.4 g/dL (3.4-5.0); ALKALINE PHOSPHATASE 44 U/L (45-117); ANION GAP 4 mmol/L (5-15); BILIRUBIN,TOTAL 0.6 mg/dL (0.2-1.0); CALCIUM 8.1 mg/dL (8.5-10.1); CREATINE KINASE, TOTAL 5511 U/L (39-308); CREATININE 0.96 mg/dL (0.7-1.3); TOTAL PROTEIN 5.2 g/dL (6.4-8.2)
[2021-02-21 08:00] VITALS: BP 117/80
[2021-02-21] MEDS ORDERED: POTASSIUM PHOS 4.4 MEQ/ML IV ONE (08:00)
[2021-02-21] MEDS ORDERED: POTASSIUM PHOSPHATE 44 MEQ in SODIUM CHLORIDE 0.9% 500 ML IV ONE (08:30)
[2021-02-21] MEDS: CALCIUM/VITAMIN D3 250-125 TABLET PO SCH ×2 (09:00→20:33)
[2021-02-21] MEDS: THIAMINE 100MG TABLET PO SCH ×2 (09:00→20:32)
[2021-02-21] MEDS: POTASSIUM CHLORIDE 20 MEQ PACKET PO SCH (09:15)
[2021-02-21] MEDS: LACTOBACILLUS CHEW TABLET PO SCH ×3 (09:16→20:32)
[2021-02-21] MEDS ORDERED: ERGOCALCIFEROL 50,000 UNIT CAPSULE PO SCH (10:00)
[2021-02-21] MEDS: LORazepam 0.5MG TABLET PO PRN ×2 (12:32→22:24)
[2021-02-21 13:27] LABS: CHLORIDE,URINE RANDOM 142 mmol/L; POTASSIUM,URINE RANDOM 20 mmol/L; SODIUM,URINE RANDOM 125 mmol/L
[2021-02-21 13:31] LABS: MICROSCOPIC INDICATED
[2021-02-21 13:37] LABS: CREATININE,URINE RANDOM 34.1 mg/dL
[2021-02-21 13:38] LABS: OCCULT BLOOD NEGATIVE (NEGATIVE)
[2021-02-21 14:12] VITALS: BP 113/77
[2021-02-21 20:14] VITALS: BP 132/81
[2021-02-21] MEDS ORDERED: ACETAMINOPHEN 325 MG TABLET ONE (22:15)
[2021-02-21] MEDS: ACETAMINOPHEN 325 MG TABLET PO PRN (22:24)
[2021-02-22 01:32] VITALS: BP 120/81
[2021-02-22] MEDS: NS + 40MEQ KCL 1,000 ML IV SCH (03:05)
[2021-02-22] MEDS: HEPARIN 5,000 UNITS/ML, 1ML SQ SCH (03:06)
[2021-02-22] MEDS: OMEPRAZOLE 20 MG CAPSULE.DR PO SCH ×2 (05:08→15:48)
[2021-02-22 05:25] LABS: BASOPHILS % (AUTO) 1 % (0-1); EOSINOPHILS % (AUTO) 2 % (1-7); LYMPHOCYTES % (AUTO) 33 % (22-44); MEAN CORPUSCULAR HEMOGLOBIN 35.8 pg (27.5-34.5); MEAN CORPUSCULAR HGB CONC 34.4 g/dL (33.2-36.2); MEAN PLATELET VOLUME 8.2 fL (7.4-10.4); MONOCYTES % (AUTO) 17 % (2-9); NEUTROPHILS % (AUTO) 47 % (42-75); PLATELET COUNT 289 x10^3/uL (130-400); RED BLOOD COUNT 3.55 x10^6/uL (4.38-5.82); RED CELL DISTRIBUTION WIDTH 14.9 % (9.4-14.8)
[2021-02-22 05:41] LABS: ALANINE AMINOTRANSFERASE 141 U/L (12-78); ALBUMIN 2.6 g/dL (3.4-5.0); ALKALINE PHOSPHATASE 56 U/L (45-117); ANION GAP 9 mmol/L (5-15); BILIRUBIN,TOTAL 0.7 mg/dL (0.2-1.0); CALCIUM 7.8 mg/dL (8.5-10.1); CHLORIDE 111 mmol/L (98-107); CREATININE 0.77 mg/dL (0.7-1.3); TOTAL PROTEIN 5.8 g/dL (6.4-8.2)
[2021-02-22 05:52] LABS: CREATINE KINASE, TOTAL 3056 U/L (39-308)
[2021-02-22] MEDS: LACTOBACILLUS CHEW TABLET PO SCH ×3 (08:04→20:41)
[2021-02-22] MEDS: CALCIUM/VITAMIN D3 250-125 TABLET PO SCH ×2 (08:04→20:41)
[2021-02-22] MEDS: POTASSIUM CHLORIDE 20 MEQ PACKET PO SCH (08:04)
[2021-02-22] MEDS: THIAMINE 100MG TABLET PO SCH ×2 (08:05→20:42)
[2021-02-22 08:18] VITALS: BP 156/104
[2021-02-22] MEDS: ACETAMINOPHEN 325 MG TABLET PO PRN (08:22)
[2021-02-22] MEDS ORDERED: MAGNESIUM SULFATE PMX 4GM/100M 100 ML IV ONE (08:30)
[2021-02-22] MEDS ORDERED: SODIUM CHLORIDE 0.9% 1,000 ML IV SCH (08:30)
[2021-02-22] MEDS: ENOXAPARIN 40 MG/0.4 ML SQ SCH (09:06)
[2021-02-22] MEDS ORDERED: POTASSIUM PHOSPHATE 44 MEQ in SODIUM CHLORIDE 0.9% 500 ML IV ONE (11:00)
[2021-02-22 13:01] VITALS: BP 134/90
[2021-02-22 14:16] LABS: MICROSCOPIC NOT IND
[2021-02-22 14:34] LABS: CREATININE,URINE RANDOM < 13.00 mg/dL; TOTAL PROTEIN,URINE RANDOM < 5 mg/dL (0-12)
[2021-02-22 14:39] LABS: CHLORIDE,URINE RANDOM 69 mmol/L; POTASSIUM,URINE RANDOM 7 mmol/L; SODIUM,URINE RANDOM 66 mmol/L
[2021-02-22 19:46] VITALS: BP 127/82
[2021-02-22] MEDS: SODIUM CHLORIDE 0.9% 1,000 ML IV SCH (20:30)
[2021-02-23 01:45] VITALS: BP 121/81
[2021-02-23] MEDS: ACETAMINOPHEN 325 MG TABLET PO PRN (04:28)
[2021-02-23 05:50] LABS: BASOPHILS % (AUTO) 0 % (0-1); EOSINOPHILS % (AUTO) 2 % (1-7); LYMPHOCYTES % (AUTO) 26 % (22-44); MEAN CORPUSCULAR HEMOGLOBIN 36.1 pg (27.5-34.5); MEAN CORPUSCULAR HGB CONC 34.2 g/dL (33.2-36.2); MEAN PLATELET VOLUME 8.1 fL (7.4-10.4); MONOCYTES % (AUTO) 15 % (2-9); NEUTROPHILS % (AUTO) 57 % (42-75); PLATELET COUNT 362 x10^3/uL (130-400); RED BLOOD COUNT 3.66 x10^6/uL (4.38-5.82); RED CELL DISTRIBUTION WIDTH 15.2 % (9.4-14.8)
[2021-02-23] MEDS: OMEPRAZOLE 20 MG CAPSULE.DR PO SCH ×2 (05:51→15:38)
[2021-02-23 06:04] LABS: CHLORIDE 108 mmol/L (98-107)
[2021-02-23 06:23] LABS: ALANINE AMINOTRANSFERASE 118 U/L (12-78); ALBUMIN 2.6 g/dL (3.4-5.0); ALKALINE PHOSPHATASE 61 U/L (45-117); ANION GAP 7 mmol/L (5-15); BILIRUBIN,TOTAL 0.4 mg/dL (0.2-1.0); CALCIUM 8.4 mg/dL (8.5-10.1); CREATINE KINASE, TOTAL 1411 U/L (39-308); CREATININE 0.96 mg/dL (0.7-1.3); TOTAL PROTEIN 5.9 g/dL (6.4-8.2)
[2021-02-23 07:42] VITALS: BP 126/82
[2021-02-23] MEDS ORDERED: POTASSIUM PHOSPHATE 44 MEQ in SODIUM CHLORIDE 0.9% 500 ML IV ONE (08:00)
[2021-02-23] MEDS ORDERED: SODIUM CHLORIDE 0.9% 1,000 ML IV SCH (08:30)
[2021-02-23] MEDS: LACTOBACILLUS CHEW TABLET PO SCH ×3 (08:52→20:32)
[2021-02-23] MEDS: POTASSIUM CHLORIDE 20 MEQ PACKET PO SCH (08:52)
[2021-02-23] MEDS: THIAMINE 100MG TABLET PO SCH ×2 (08:52→20:33)
[2021-02-23] MEDS: CALCIUM/VITAMIN D3 250-125 TABLET PO SCH ×2 (08:53→20:32)
[2021-02-23] MEDS: ENOXAPARIN 40 MG/0.4 ML SQ SCH (08:54)
[2021-02-23 14:17] VITALS: BP 124/90
[2021-02-23 19:27] VITALS: BP 120/79
[2021-02-23] MEDS: SODIUM CHLORIDE 0.9% 1,000 ML IV SCH (20:31)
[2021-02-23] MEDS: FAMOTIDINE 20 MG TABLET PO SCH (20:32)
[2021-02-24 00:38] VITALS: BP 126/84
[2021-02-24] MEDS: OMEPRAZOLE 20 MG CAPSULE.DR PO SCH ×2 (05:57→15:09)
[2021-02-24] MEDS: ACETAMINOPHEN 325 MG TABLET PO PRN (05:57)
[2021-02-24 07:02] VITALS: BP 124/80
[2021-02-24] MEDS: THIAMINE 100MG TABLET PO SCH ×2 (07:48→21:16)
[2021-02-24] MEDS: POTASSIUM CHLORIDE 20 MEQ PACKET PO SCH (07:48)
[2021-02-24] MEDS: FAMOTIDINE 20 MG TABLET PO SCH ×2 (07:48→21:17)
[2021-02-24] MEDS: LACTOBACILLUS CHEW TABLET PO SCH ×3 (07:48→21:17)
[2021-02-24] MEDS: ENOXAPARIN 40 MG/0.4 ML SQ SCH (07:48)
[2021-02-24] MEDS: CALCIUM/VITAMIN D3 250-125 TABLET PO SCH ×2 (07:48→21:00)
[2021-02-24 13:23] VITALS: BP 114/77
[2021-02-24] MEDS: SODIUM CHLORIDE 0.9% 1,000 ML IV SCH (15:10)
[2021-02-24 18:22] VITALS: BP 123/81
[2021-02-24] MEDS ORDERED: NICOTINE 7 MG/24 HR PATCH.TD24 TD SCH (20:00)
[2021-02-25 01:02] VITALS: BP 120/80
[2021-02-25] MEDS: ACETAMINOPHEN 325 MG TABLET PO PRN (03:27)
[2021-02-25] MEDS: SODIUM CHLORIDE 0.9% 1,000 ML IV SCH (03:29)
[2021-02-25] MEDS: OMEPRAZOLE 20 MG CAPSULE.DR PO SCH (05:32)
[2021-02-25 07:20] VITALS: BP 161/98
[2021-02-25] MEDS: FAMOTIDINE 20 MG TABLET PO SCH (08:14)
[2021-02-25] MEDS: CALCIUM/VITAMIN D3 250-125 TABLET PO SCH (08:14)
[2021-02-25] MEDS: POTASSIUM CHLORIDE 20 MEQ PACKET PO SCH (08:14)
[2021-02-25] MEDS: LACTOBACILLUS CHEW TABLET PO SCH (08:14)
[2021-02-25] MEDS: ENOXAPARIN 40 MG/0.4 ML SQ SCH (08:15)
[2021-02-25] MEDS: THIAMINE 100MG TABLET PO SCH (08:15)
[2021-02-25] MEDS ORDERED: OMEP-110 PO (10:18)
[2021-02-25] MEDS ORDERED: THIA100T67 PO (10:18)
[2021-02-25] MEDS ORDERED: ACID1TAB7 PO (10:18)
== END 2021-02-25 13:20 | disposition home or self-care (01) | DRG 557 ==
LOC: ED 13:34 → EDIP 15:36 → 4WST 17:45 → DCLOUNGE 02-25 13:04
PROVIDERS: ADMIT Internal Medicine; ATTEND Internal Medicine
DX: M62.82 Rhabdomyolysis (principal); N17.0 Acute kidney failure with tubular necrosis; F11.23 Opioid dependence with withdrawal; D64.9 Anemia, unspecified; E83.39 Other disorders of phosphorus metabolism; E83.51 Hypocalcemia; E87.6 Hypokalemia; F17.210 Nicotine dependence, cigarettes, uncomplicated; F12.10 Cannabis abuse, uncomplicated; I10 Essential (primary) hypertension; Z87.11 Personal history of peptic ulcer disease; K29.20 Alcoholic gastritis without bleeding; K70.10 Alcoholic hepatitis without ascites; F10.20 Alcohol dependence, uncomplicated; K21.9 Gastro-esophageal reflux disease without esophagitis; I95.9 Hypotension, unspecified; Y90.9 Presence of alcohol in blood, level not specified; G47.00 Insomnia, unspecified; R73.9 Hyperglycemia, unspecified; Z71.6 Tobacco abuse counseling; Z71.41 Alcohol abuse counseling and surveillance of alcoholic; Z71.51 Drug abuse counseling and surveillance of drug abuser
CPT/HCPCS: 36415; 71045; 80053; 80074; 80299; 80307; 80320; 80329; 81001; 81003; 82272; 82306; 82310; 82330; 82436; 82550; 82570; 82728; 83540; 83550; 83735; 83880; 83970; 84100; 84133; 84156; 84166; 84300; 84443; 84550; 85025; 85045; 87806; 93005; 96360; 96361; G0378; J1644; J1650; J2405; J3480; G0475; G0480; J3475; J7030; J7040